=== PATIENT | female | born 1950 | race Caucasian/White ===

== ENCOUNTER 2017-07-28 17:04 | Inpatient (IN) | payer MEDICARE, OTHER ==
[2017-07-28 17:33] LABS: ADD MAN DIFF? NO
[2017-07-28] MEDS: ONDANSETRON 4 MG INJ IV (17:33)
[2017-07-28] MEDS: SOD CHLORIDE 0.9% 1,000 ML IV (17:33)
[2017-07-28 17:36] LABS: WHITE BLOOD COUNT 6.3 10^3/ul (4.8-10.8)
[2017-07-28 17:36] LABS: BASOPHILS % 0.3 % (0.0-2.0); EOSINOPHILS # 0.1 10^3/ul (0.0-0.5); EOSINOPHILS % 0.8 % (0.0-7.0); HEMATOCRIT 38.2 % (37.0-47.0); HEMOGLOBIN 12.4 g/dl (12.0-16.0); LYMPHOCYTES # 2.3 10^3/ul (0.8-2.9); LYMPHOCYTES % 35.7 % (15.0-51.0); MEAN CORPUSCULAR HEMOGLOBIN 29.8 pg (29.0-33.0); MEAN CORPUSCULAR HGB CONC 32.5 g/dl (32.0-37.0); MEAN CORPUSCULAR VOLUME 91.8 fl (82.0-101.0); MEAN PLATELET VOLUME 10.6 fl (7.4-10.4); MONOCYTE # 0.5 10^3/ul (0.3-0.9); MONOCYTES % 7.1 % (0.0-11.0); NEUTROPHIL # 3.5 10^3/ul (1.6-7.5); NEUTROPHILS % 55.9 % (39.0-77.0); PLATELET COUNT 292 10^3/UL (140-415); RED BLOOD COUNT 4.16 10^6/ul (4.20-5.40); RED CELL DISTRIBUTION WIDTH 13.7 % (11.5-14.5)
[2017-07-28] MEDS: ASPIRIN 81 MG TAB PO (17:51)
[2017-07-28] MEDS: LIDOCAINE/MYLANTA 40 ML BTL PO (17:52)
[2017-07-28 17:56] LABS: INR 0.88; PT RATIO 0.9
[2017-07-28 17:57] LABS: ALANINE AMINOTRANSFERASE 18 IU/L (13-69); ALBUMIN 4.4 g/dl (3.3-4.9); ALBUMIN/GLOBULIN RATIO 1.37; ALKALINE PHOSPHATASE 92 IU/L (42-121); ANION GAP 10 (8-16); ASPARTATE AMINO TRANSFERASE 14 IU/L (15-46); BILIRUBIN,INDIRECT 0.8 mg/dl (0-1.1); BILIRUBIN,TOTAL 0.8 mg/dl (0.2-1.3); BLOOD UREA NITROGEN 9 mg/dl (7-20); CALCIUM 9.3 mg/dl (8.4-10.2); CARBON DIOXIDE 24 mmol/L (21-31); CHLORIDE 110 mmol/L (97-110); CREATININE 0.73 mg/dl (0.44-1.00); GLUCOSE 86 mg/dl (70-220); LIPASE 57 U/L (23-300); POTASSIUM 4.1 mmol/L (3.5-5.1); SODIUM 140 mmol/L (135-144); TOTAL PROTEIN 7.6 g/dl (6.1-8.1)
[2017-07-28 18:09] LABS: B-TYPE NATRIURETIC PEPTIDE 86 PG/ML (0-125)
[2017-07-28 18:20] LABS: TROPONIN-I < 0.012 ng/ml (0.000-0.120)
[2017-07-28] MEDS ORDERED: FENTAnyl 50 MCG/ML VIAL IV (19:00)
[2017-07-28] MEDS: METOCLOPRAMIDE 10 MG INJ IV (19:05)
[2017-07-28] MEDS ORDERED: ACETAMINOPHEN 325 MG TAB PO (19:30)
[2017-07-28] MEDS ORDERED: ONDANSETRON 4 MG INJ IV (19:30)
[2017-07-28] MEDS: morphine 4 MG/ML VIAL IV (20:00)
[2017-07-28] MEDS ORDERED: PANTOPRAZOLE 40 MG INJ IV (20:00)
[2017-07-28] MEDS: PANTOPRAZOLE IV 80 MG in SOD CHLORIDE 0.9% 100 ML IV (20:14)
[2017-07-28] MEDS: PANTOPRAZOLE 40 MG INJ IV (21:36)
[2017-07-28] MEDS ORDERED: METOCLOPRAMIDE 10 MG TAB PO (22:30)
[2017-07-28] MEDS ORDERED: morphine 2 MG INJ IV (22:30)
[2017-07-28] MEDS ORDERED: DIPHENHYDRAMINE 25 MG CAP PO (22:30)
[2017-07-28] MEDS: DEXTROSE 5%-0.9% NACL 1,000 ML IV (22:59)
[2017-07-28 23:46] LABS: CREATINE KINASE 21 IU/L (23-200)
[2017-07-28] MEDS: morphine 2 MG INJ IV (23:51)
[2017-07-28 23:59] LABS: CK-MB < 0.22 ng/ml (0.0-2.4); TROPONIN-I < 0.012 ng/ml (0.000-0.120)
[2017-07-29] MEDS: morphine 2 MG INJ IV ×5 (03:20→20:37)
[2017-07-29] MEDS: PANTOPRAZOLE (EC) 40 MG TAB PO (06:00)
[2017-07-29] MEDS: DEXTROSE 5%-0.9% NACL 1,000 ML IV (06:47)
[2017-07-29 07:13] LABS: ADD MAN DIFF? NO
[2017-07-29 07:17] LABS: BASOPHILS % 0.2 % (0.0-2.0); EOSINOPHILS # 0.1 10^3/ul (0.0-0.5); EOSINOPHILS % 1.7 % (0.0-7.0); HEMATOCRIT 32.1 % (37.0-47.0); LYMPHOCYTES % 40.3 % (15.0-51.0); MEAN CORPUSCULAR HEMOGLOBIN 29.3 pg (29.0-33.0); MEAN CORPUSCULAR HGB CONC 31.2 g/dl (32.0-37.0); MEAN CORPUSCULAR VOLUME 94.1 fl (82.0-101.0); MEAN PLATELET VOLUME 10.6 fl (7.4-10.4); MONOCYTE # 0.4 10^3/ul (0.3-0.9); MONOCYTES % 9.1 % (0.0-11.0); NEUTROPHIL # 2.3 10^3/ul (1.6-7.5); NEUTROPHILS % 48.3 % (39.0-77.0); PLATELET COUNT 217 10^3/UL (140-415); RED BLOOD COUNT 3.41 10^6/ul (4.20-5.40); RED CELL DISTRIBUTION WIDTH 13.6 % (11.5-14.5)
[2017-07-29 07:17] LABS: WHITE BLOOD COUNT 4.8 10^3/ul (4.8-10.8)
[2017-07-29 07:35] LABS: LIPASE 54 U/L (23-300)
[2017-07-29 07:37] LABS: ALANINE AMINOTRANSFERASE 20 IU/L (13-69); ALBUMIN 3.1 g/dl (3.3-4.9); ALBUMIN/GLOBULIN RATIO 1.14; ALKALINE PHOSPHATASE 68 IU/L (42-121); AMYLASE 57 U/L (11-123); ANION GAP 8 (8-16); ASPARTATE AMINO TRANSFERASE 11 IU/L (15-46); BILIRUBIN,INDIRECT 0.7 mg/dl (0-1.1); BILIRUBIN,TOTAL 0.7 mg/dl (0.2-1.3); BLOOD UREA NITROGEN 7 mg/dl (7-20); CALCIUM 7.3 mg/dl (8.4-10.2); CARBON DIOXIDE 23 mmol/L (21-31); CHLORIDE 112 mmol/L (97-110); CREATININE 0.67 mg/dl (0.44-1.00); GLUCOSE 215 mg/dl (70-220); MAGNESIUM 1.9 mg/dl (1.7-2.5); PHOSPHORUS 2.2 mg/dl (2.5-4.9); POTASSIUM 3.7 mmol/L (3.5-5.1); SODIUM 139 mmol/L (135-144); TOTAL PROTEIN 5.8 g/dl (6.1-8.1)
[2017-07-29 07:40] LABS: DIGOXIN < 0.4 ng/ml (1.0-2.0)
[2017-07-29 07:41] LABS: CREATINE KINASE < 20 IU/L (23-200)
[2017-07-29 07:42] LABS: IRON 43 ug/dl (35-150)
[2017-07-29] MEDS: ONDANSETRON 4 MG INJ IV ×2 (07:45→20:37)
[2017-07-29 07:49] LABS: CK-MB < 0.22 ng/ml (0.0-2.4); TROPONIN-I < 0.012 ng/ml (0.000-0.120)
[2017-07-29 07:51] LABS: % IRON SATURATION 18 % SAT (22-52); TOTAL IRON BINDING CAPACITY 239 ug/dl (241-421)
[2017-07-29] MEDS: ARIPIPRAZOLE 2 MG TAB PO (08:46)
[2017-07-29] MEDS: morphine LIQ (10 MG/5 ML) CUP PO ×2 (15:57→16:04)
[2017-07-29] MEDS: SOD FERRIC GLUC COMPLX 125 MG in SOD CHLORIDE 0.9% 100 ML IVPB (16:17)
[2017-07-30] MEDS: DEXTROSE 5%-0.9% NACL 1,000 ML IV ×3 (00:17→17:11)
[2017-07-30] MEDS: ONDANSETRON 4 MG INJ IV ×3 (04:02→18:10)
[2017-07-30] MEDS: PANTOPRAZOLE (EC) 40 MG TAB PO (05:20)
[2017-07-30] MEDS: ARIPIPRAZOLE 2 MG TAB PO (09:00)
[2017-07-30] MEDS: morphine 2 MG INJ IV ×4 (09:51→20:43)
[2017-07-30] MEDS: SOD FERRIC GLUC COMPLX 125 MG in SOD CHLORIDE 0.9% 100 ML IVPB (17:06)
[2017-07-31] MEDS: morphine 2 MG INJ IV ×6 (01:10→21:15)
[2017-07-31] MEDS: ONDANSETRON 4 MG INJ IV ×3 (05:15→16:21)
[2017-07-31] MEDS: PANTOPRAZOLE (EC) 40 MG TAB PO (05:47)
[2017-07-31 07:36] LABS: ADD MAN DIFF? NO
[2017-07-31 07:46] LABS: BASOPHILS % 0.2 % (0.0-2.0); EOSINOPHILS # 0.1 10^3/ul (0.0-0.5); EOSINOPHILS % 1.6 % (0.0-7.0); HEMATOCRIT 32.6 % (37.0-47.0); HEMOGLOBIN 10.9 g/dl (12.0-16.0); LYMPHOCYTES # 1.7 10^3/ul (0.8-2.9); LYMPHOCYTES % 34.3 % (15.0-51.0); MEAN CORPUSCULAR HEMOGLOBIN 30.1 pg (29.0-33.0); MEAN CORPUSCULAR HGB CONC 33.4 g/dl (32.0-37.0); MEAN CORPUSCULAR VOLUME 90.1 fl (82.0-101.0); MEAN PLATELET VOLUME 10.7 fl (7.4-10.4); MONOCYTE # 0.5 10^3/ul (0.3-0.9); MONOCYTES % 10.7 % (0.0-11.0); NEUTROPHIL # 2.6 10^3/ul (1.6-7.5); NEUTROPHILS % 52.8 % (39.0-77.0); PLATELET COUNT 249 10^3/UL (140-415); RED BLOOD COUNT 3.62 10^6/ul (4.20-5.40); RED CELL DISTRIBUTION WIDTH 13.6 % (11.5-14.5)
[2017-07-31] MEDS: ASPIRIN 81 MG TAB PO (08:01)
[2017-07-31] MEDS: ARIPIPRAZOLE 2 MG TAB PO (08:01)
[2017-07-31 08:08] LABS: ALANINE AMINOTRANSFERASE 21 IU/L (13-69); ALBUMIN 3.6 g/dl (3.3-4.9); ALBUMIN/GLOBULIN RATIO 1.24; ALKALINE PHOSPHATASE 75 IU/L (42-121); AMYLASE 68 U/L (11-123); ANION GAP 6 (8-16); ASPARTATE AMINO TRANSFERASE 14 IU/L (15-46); BILIRUBIN,INDIRECT 0.5 mg/dl (0-1.1); BILIRUBIN,TOTAL 0.5 mg/dl (0.2-1.3); BLOOD UREA NITROGEN 2 mg/dl (7-20); CALCIUM 7.8 mg/dl (8.4-10.2); CARBON DIOXIDE 22 mmol/L (21-31); CHLORIDE 115 mmol/L (97-110); CREATININE 0.57 mg/dl (0.44-1.00); GLUCOSE 106 mg/dl (70-220); LIPASE 68 U/L (23-300); POTASSIUM 3.4 mmol/L (3.5-5.1); SODIUM 140 mmol/L (135-144); TOTAL PROTEIN 6.5 g/dl (6.1-8.1)
[2017-07-31 08:35] LABS: CARCINOEMBRYONIC ANTIGEN 1.8 ng/ml (0.0-5.0)
[2017-07-31] MEDS: DEXTROSE 5%-0.9% NACL 1,000 ML IV ×2 (11:20→16:21)
[2017-07-31] MEDS: SOD FERRIC GLUC COMPLX 125 MG in SOD CHLORIDE 0.9% 100 ML IVPB (17:00)
[2017-07-31] MEDS: PROPOFOL 40 ML (18:49)
[2017-07-31] MEDS: LIDOCAINE 2% (SDV) 5 ML INJ (18:49)
[2017-07-31] MEDS: METOCLOPRAMIDE 10 MG INJ IV (22:27)
[2017-08-01] MEDS: morphine 2 MG INJ IV ×6 (01:30→21:59)
[2017-08-01] MEDS: METOCLOPRAMIDE 10 MG INJ IV ×2 (03:47→08:32)
[2017-08-01] MEDS: PANTOPRAZOLE (EC) 40 MG TAB PO ×2 (05:44→20:18)
[2017-08-01] MEDS: ASPIRIN 81 MG TAB PO (08:32)
[2017-08-01] MEDS: ARIPIPRAZOLE 2 MG TAB PO (08:32)
[2017-08-01] MEDS: DEXTROSE 5%-0.9% NACL 1,000 ML IV (08:40)
[2017-08-01] MEDS: SUCRALFATE 1 GM TAB PO ×4 (13:29→20:17)
[2017-08-01] MEDS: ONDANSETRON 4 MG INJ IV (15:30)
[2017-08-01] MEDS ORDERED: POTASSIUM CHLORIDE (SR) 20 MEQ TAB PO (18:52)
[2017-08-01] MEDS: ERYTHROMYCIN BASE (EC) 250 MG TAB PO (20:18)
[2017-08-01] MEDS: POTASSIUM CHLORIDE 100 ML IVPB (21:53)
[2017-08-02] MEDS: DEXTROSE 5%-0.9% NACL 1,000 ML IV ×2 (02:54→20:30)
[2017-08-02] MEDS: morphine 2 MG INJ IV ×5 (03:31→23:51)
[2017-08-02] MEDS: ONDANSETRON 4 MG INJ IV ×3 (03:34→20:35)
[2017-08-02] MEDS: ERYTHROMYCIN BASE (EC) 250 MG TAB PO ×2 (08:24→20:30)
[2017-08-02] MEDS: ASPIRIN 81 MG TAB PO (08:24)
[2017-08-02] MEDS: ARIPIPRAZOLE 2 MG TAB PO (08:24)
[2017-08-02] MEDS: SUCRALFATE 1 GM TAB PO ×4 (08:24→20:30)
[2017-08-02] MEDS: PANTOPRAZOLE (EC) 40 MG TAB PO ×2 (08:24→20:30)
[2017-08-02] MEDS: METOCLOPRAMIDE 10 MG INJ IV (15:47)
[2017-08-02] MEDS: POTASSIUM PHOSPHATE 20 MEQ in SOD CHLORIDE 0.9% 250 ML IVPB (16:00)
[2017-08-03] MEDS: morphine 2 MG INJ IV ×6 (03:49→21:49)
[2017-08-03 07:04] LABS: ADD MAN DIFF? NO
[2017-08-03 07:11] LABS: BASOPHILS % 0.2 % (0.0-2.0); EOSINOPHILS # 0.1 10^3/ul (0.0-0.5); EOSINOPHILS % 2.2 % (0.0-7.0); HEMATOCRIT 31.6 % (37.0-47.0); HEMOGLOBIN 10.1 g/dl (12.0-16.0); LYMPHOCYTES # 1.6 10^3/ul (0.8-2.9); LYMPHOCYTES % 31.7 % (15.0-51.0); MEAN CORPUSCULAR HEMOGLOBIN 29.2 pg (29.0-33.0); MEAN CORPUSCULAR VOLUME 91.3 fl (82.0-101.0); MEAN PLATELET VOLUME 10.9 fl (7.4-10.4); MONOCYTE # 0.5 10^3/ul (0.3-0.9); NEUTROPHIL # 2.8 10^3/ul (1.6-7.5); NEUTROPHILS % 55.7 % (39.0-77.0); PLATELET COUNT 233 10^3/UL (140-415); RED BLOOD COUNT 3.46 10^6/ul (4.20-5.40); RED CELL DISTRIBUTION WIDTH 13.6 % (11.5-14.5)
[2017-08-03 07:36] LABS: ALANINE AMINOTRANSFERASE 23 IU/L (13-69); ALBUMIN 3.3 g/dl (3.3-4.9); ALBUMIN/GLOBULIN RATIO 1.32; ALKALINE PHOSPHATASE 61 IU/L (42-121); AMYLASE 61 U/L (11-123); ANION GAP 12 (8-16); ASPARTATE AMINO TRANSFERASE 13 IU/L (15-46); BILIRUBIN,INDIRECT 0.5 mg/dl (0-1.1); BILIRUBIN,TOTAL 0.5 mg/dl (0.2-1.3); CALCIUM 7.1 mg/dl (8.4-10.2); CARBON DIOXIDE 25 mmol/L (21-31); CHLORIDE 111 mmol/L (97-110); GLUCOSE 98 mg/dl (70-220); LIPASE 59 U/L (23-300); POTASSIUM 3.6 mmol/L (3.5-5.1); SODIUM 144 mmol/L (135-144); TOTAL PROTEIN 5.8 g/dl (6.1-8.1)
[2017-08-03 07:38] LABS: PHOSPHORUS 1.4 mg/dl (2.5-4.9)
[2017-08-03 07:38] LABS: MAGNESIUM 1.9 mg/dl (1.7-2.5)
[2017-08-03] MEDS: ONDANSETRON 4 MG INJ IV ×2 (07:44→18:40)
[2017-08-03 07:46] LABS: BLOOD UREA NITROGEN < 2 mg/dl (7-20)
[2017-08-03 08:08] LABS: ERYTHROCYTE SEDIMENTATION RATE 17 mm/Hr (0-30)
[2017-08-03] MEDS: ERYTHROMYCIN BASE (EC) 250 MG TAB PO ×3 (08:55→21:00)
[2017-08-03] MEDS: ARIPIPRAZOLE 2 MG TAB PO (08:56)
[2017-08-03] MEDS: SUCRALFATE 1 GM TAB PO ×5 (08:56→21:00)
[2017-08-03] MEDS: ASPIRIN 81 MG TAB PO (08:56)
[2017-08-03] MEDS: PANTOPRAZOLE (EC) 40 MG TAB PO ×3 (08:56→21:00)
[2017-08-03] MEDS: DEXTROSE 5%-0.9% NACL 1,000 ML IV (12:28)
[2017-08-03] MEDS: METOCLOPRAMIDE 10 MG INJ IV ×2 (13:22→21:21)
[2017-08-03] MEDS: POTASSIUM PHOSPHATE 20 MEQ in SOD CHLORIDE 0.9% 250 ML IVPB ×2 (14:30→15:37)
[2017-08-03] MEDS: SOD FERRIC GLUC COMPLX 125 MG in SOD CHLORIDE 0.9% 100 ML IVPB (17:00)
[2017-08-04] MEDS: morphine 2 MG INJ IV ×6 (01:03→20:49)
[2017-08-04] MEDS: DEXTROSE 5%-0.9% NACL 1,000 ML IV ×2 (04:30→18:22)
[2017-08-04 07:53] LABS: ANION GAP 12 (8-16); CALCIUM 7.7 mg/dl (8.4-10.2); CARBON DIOXIDE 26 mmol/L (21-31); CHLORIDE 110 mmol/L (97-110); CREATININE 0.56 mg/dl (0.44-1.00); GLUCOSE 89 mg/dl (70-220); PHOSPHORUS 1.7 mg/dl (2.5-4.9); POTASSIUM 3.7 mmol/L (3.5-5.1); SODIUM 144 mmol/L (135-144)
[2017-08-04 07:56] LABS: BLOOD UREA NITROGEN < 2 mg/dl (7-20)
[2017-08-04] MEDS: ASPIRIN 81 MG TAB PO (09:00)
[2017-08-04] MEDS: ARIPIPRAZOLE 2 MG TAB PO (09:00)
[2017-08-04] MEDS: POTASSIUM PHOSPHATE 20 MEQ in SOD CHLORIDE 0.9% 250 ML IV (09:25)
[2017-08-04] MEDS: PANTOPRAZOLE (EC) 40 MG TAB PO ×2 (09:27→20:49)
[2017-08-04] MEDS: ERYTHROMYCIN BASE (EC) 250 MG TAB PO ×2 (09:27→20:52)
[2017-08-04] MEDS: SUCRALFATE 1 GM TAB PO ×4 (09:27→20:53)
[2017-08-04] MEDS: METOCLOPRAMIDE 10 MG INJ IV (09:44)
[2017-08-04] MEDS: LUBIPROSTONE 24 MCG CAP PO ×2 (11:06→20:48)
[2017-08-04] MEDS ORDERED: POTASSIUM PHOSPHATE 30 MM in SOD CHLORIDE 0.9% 250 ML IVPB (16:00)
[2017-08-04] MEDS: SOD FERRIC GLUC COMPLX 125 MG in SOD CHLORIDE 0.9% 100 ML IVPB (16:25)
[2017-08-04] MEDS: POTASSIUM PHOSPHATE 10 MM in SOD CHLORIDE 0.9% 250 ML IVPB (18:21)
[2017-08-04] MEDS ORDERED: PROCHLORPERAZINE 25 MG SUPP PR (20:00)
[2017-08-05] MEDS: morphine 2 MG INJ IV ×4 (00:07→12:41)
[2017-08-05] MEDS: METOCLOPRAMIDE 10 MG INJ IV ×2 (00:11→12:40)
[2017-08-05] MEDS ORDERED: DEXTROSE 5%-0.45% NACL 1,000 ML IV (05:00)
[2017-08-05] MEDS: LUBIPROSTONE 24 MCG CAP PO (09:00)
[2017-08-05] MEDS: ARIPIPRAZOLE 2 MG TAB PO (09:00)
[2017-08-05] MEDS: ERYTHROMYCIN BASE (EC) 250 MG TAB PO (09:00)
[2017-08-05] MEDS: ASPIRIN 81 MG TAB PO (09:00)
[2017-08-05] MEDS: PANTOPRAZOLE (EC) 40 MG TAB PO (09:00)
[2017-08-05] MEDS: SUCRALFATE 1 GM TAB PO ×3 (09:00→17:00)
[2017-08-05] MEDS: ONDANSETRON 4 MG INJ IV (09:34)
[2017-08-05 12:46] LABS: ADD UMIC YES; UR ASCORBIC ACID NEGATIVE (NEGATIVE); UR BACTERIA FEW /HPF (NONE SEEN); UR BILIRUBIN (Dip) NEGATIVE (NEGATIVE); UR BLOOD (Dip) 1+ mg/dL (NEGATIVE); UR CLARITY CLOUDY (CLEAR); UR COLOR YELLOW (YELLOW); UR GLUCOSE (Dip) NEGATIVE (NEGATIVE); UR KETONES (Dip) NEGATIVE (NEGATIVE); UR LEUKOCYTE ESTERASE (Dip) 3+ Leu/ul (NEGATIVE); UR NITRITE (Dip) NEGATIVE (NEGATIVE); UR RBC 4 /HPF (0-5); UR TOTAL PROTEIN (Dip) NEGATIVE (NEGATIVE); UR UROBILINOGEN (Dip) 1+ mg/dL (NEGATIVE); UR WBC > 182 /HPF (0-5)
[2017-08-05] MEDS: DEXTROSE 5%-0.9% NACL 1,000 ML IV (13:50)
[2017-08-05] MEDS: POTASSIUM PHOSPHATE 30 MM in SOD CHLORIDE 0.9% 250 ML IVPB (13:59)
[2017-08-05] MEDS: SOD FERRIC GLUC COMPLX 125 MG in SOD CHLORIDE 0.9% 100 ML IVPB (17:00)
== END 2017-08-05 20:30 | disposition home or self-care (01) | DRG 392 ==
LOC: E/R 17:04 → MS4 20:15
PROC: 0DB68ZX Excision of Stomach, Via Natural or Artificial Opening Endoscopic, Diagnostic (ICD-10-PCS; principal; 2017-07-31 16:36)
DX: K29.70 Gastritis, unspecified, without bleeding (principal); E46 Unspecified protein-calorie malnutrition; Z68.25 Body mass index [BMI] 25.0-25.9, adult; F32.9 Major depressive disorder, single episode, unspecified; F41.9 Anxiety disorder, unspecified; I11.0 Hypertensive heart disease with heart failure; I50.9 Heart failure, unspecified; I25.2 Old myocardial infarction; G20 Parkinson's disease; K20.8 Other esophagitis; K21.9 Gastro-esophageal reflux disease without esophagitis; R42 Dizziness and giddiness; R48.8 Other symbolic dysfunctions; H53.9 Unspecified visual disturbance; M81.0 Age-related osteoporosis without current pathological fracture; R47.1 Dysarthria and anarthria; G47.33 Obstructive sleep apnea (adult) (pediatric); R32 Unspecified urinary incontinence; E87.6 Hypokalemia; E83.42 Hypomagnesemia; D50.9 Iron deficiency anemia, unspecified; D63.8 Anemia in other chronic diseases classified elsewhere; F45.8 Other somatoform disorders; E88.09 Other disorders of plasma-protein metabolism, not elsewhere classified; K44.9 Diaphragmatic hernia without obstruction or gangrene; I25.10 Atherosclerotic heart disease of native coronary artery without angina pectoris; E83.39 Other disorders of phosphorus metabolism; Z86.73 Personal history of transient ischemic attack (TIA), and cerebral infarction without residual deficits; Z79.82 Long term (current) use of aspirin; Z87.11 Personal history of peptic ulcer disease; Z91.81 History of falling; Z90.710 Acquired absence of both cervix and uterus
CPT/HCPCS: 36415; 70450; 71045; 76700; 80048; 80053; 80162; 81001; 82150; 82378; 82550; 82553; 83540; 83690; 83735; 83880; 84100; 84443; 84484; 85025; 85610; 85651; 87086; 88305; 88312; 92610; 93005; 93306; 93880; 96374; 96375; 97161; 99285-25; G0378

== ENCOUNTER 2017-08-24 16:33 | Inpatient (IN) | payer MEDICARE, OTHER ==
[2017-08-24 17:13] LABS: ADD MAN DIFF? NO
[2017-08-24 17:16] LABS: WHITE BLOOD COUNT 8.3 10^3/ul (4.8-10.8)
[2017-08-24 17:16] LABS: BASOPHILS % 0.2 % (0.0-2.0); EOSINOPHILS # 0.1 10^3/ul (0.0-0.5); EOSINOPHILS % 1.2 % (0.0-7.0); HEMOGLOBIN 12.7 g/dl (12.0-16.0); LYMPHOCYTES # 1.9 10^3/ul (0.8-2.9); LYMPHOCYTES % 22.8 % (15.0-51.0); MEAN CORPUSCULAR HEMOGLOBIN 30.1 pg (29.0-33.0); MEAN CORPUSCULAR HGB CONC 33.4 g/dl (32.0-37.0); MEAN PLATELET VOLUME 10.3 fl (7.4-10.4); MONOCYTE # 0.8 10^3/ul (0.3-0.9); MONOCYTES % 9.7 % (0.0-11.0); NEUTROPHIL # 5.5 10^3/ul (1.6-7.5); NEUTROPHILS % 65.7 % (39.0-77.0); PLATELET COUNT 318 10^3/UL (140-415); RED BLOOD COUNT 4.22 10^6/ul (4.20-5.40); RED CELL DISTRIBUTION WIDTH 13.3 % (11.5-14.5)
[2017-08-24 17:22] LABS: URINE BLOOD (Dip) POC Negative (NEGATIVE); URINE GLUCOSE (Dip) POC Negative (NEGATIVE); URINE KETONES (Dip) POC 3+ (NEGATIVE); URINE LEUKOCYTE EST (Dip) POC Trace (NEGATIVE); URINE NITRITE (Dip) POC Positive (NEGATIVE); URINE TOTAL PROTEIN POC 2+ (NEGATIVE)
[2017-08-24 17:22] LABS: URINE PH (Dip) POC 5.5 (5.0-8.5)
[2017-08-24] MEDS: SOD CHLORIDE 0.9% 500 ML IV (18:06)
[2017-08-24] MEDS: PANTOPRAZOLE 40 MG INJ IV (18:07)
[2017-08-24] MEDS: ONDANSETRON 4 MG INJ IV (18:07)
[2017-08-24] MEDS: morphine 2 MG INJ IV ×2 (18:07→21:39)
[2017-08-24] MEDS: CEFTRIAXONE 1 GM/50 ML (PMX) 50 ML IVPB (18:41)
[2017-08-24 19:13] LABS: ALANINE AMINOTRANSFERASE 23 IU/L (13-69); ALBUMIN 4.3 g/dl (3.3-4.9); ALBUMIN/GLOBULIN RATIO 1.53; ALKALINE PHOSPHATASE 70 IU/L (42-121); ANION GAP 13 (8-16); ASPARTATE AMINO TRANSFERASE 20 IU/L (15-46); BILIRUBIN,INDIRECT 0.2 mg/dl (0-1.1); BILIRUBIN,TOTAL 0.2 mg/dl (0.2-1.3); BLOOD UREA NITROGEN 14 mg/dl (7-20); CALCIUM 9.4 mg/dl (8.4-10.2); CARBON DIOXIDE 24 mmol/L (21-31); CHLORIDE 108 mmol/L (97-110); CREATININE 0.89 mg/dl (0.44-1.00); GLUCOSE 106 mg/dl (70-220); LIPASE 70 U/L (23-300); POTASSIUM 3.9 mmol/L (3.5-5.1); SODIUM 141 mmol/L (135-144); TOTAL PROTEIN 7.1 g/dl (6.1-8.1)
[2017-08-24] MEDS: LIDOCAINE/MYLANTA 40 ML BTL PO (19:36)
[2017-08-24] MEDS ORDERED: ACETAMINOPHEN 650 MG SUPP PR (21:00)
[2017-08-24 21:03] LABS: IRON 36 ug/dl (35-150)
[2017-08-24 21:04] LABS: MAGNESIUM 2.4 mg/dl (1.7-2.5)
[2017-08-24] MEDS: DEXTROSE 5%-0.9% NACL 1,000 ML IV (21:05)
[2017-08-24 21:13] LABS: % IRON SATURATION 15 % SAT (22-52); TOTAL IRON BINDING CAPACITY 234 ug/dl (241-421)
[2017-08-24] MEDS ORDERED: morphine 2 MG INJ IV (21:30)
[2017-08-24] MEDS: LEVOFLOXACIN 500MG/D5W (PMX) 100 ML IVPB (21:39)
[2017-08-25] MEDS: morphine 2 MG INJ IV ×5 (01:38→22:11)
[2017-08-25] MEDS: METOCLOPRAMIDE 10 MG INJ IV ×4 (01:45→22:15)
[2017-08-25] MEDS: PANTOPRAZOLE 40 MG INJ IV ×2 (05:33→17:14)
[2017-08-25] MEDS: MULTIVITAMINS 10 ML, THIAMINE 100 MG, FOLIC ACID 1 MG in SOD CHLORIDE 0.9% 1,000 ML IVPB (09:41)
[2017-08-25] MEDS: DEXTROSE 5%-0.9% NACL 1,000 ML IV ×2 (13:40→17:14)
[2017-08-25] MEDS: SOD FERRIC GLUC COMPLX 125 MG in SOD CHLORIDE 0.9% 100 ML IVPB (16:16)
[2017-08-25] MEDS: LUBIPROSTONE 24 MCG CAP PO (20:52)
[2017-08-25] MEDS: LEVOFLOXACIN 500MG/D5W (PMX) 100 ML IVPB (20:52)
[2017-08-26] MEDS: morphine 2 MG INJ IV ×3 (03:42→20:41)
[2017-08-26] MEDS: PANTOPRAZOLE 40 MG INJ IV ×2 (06:14→17:48)
[2017-08-26] MEDS: LUBIPROSTONE 24 MCG CAP PO ×2 (09:08→21:00)
[2017-08-26] MEDS: ONDANSETRON 4 MG INJ IV ×2 (09:09→15:35)
[2017-08-26] MEDS: MULTIVITAMINS 10 ML, THIAMINE 100 MG, FOLIC ACID 1 MG in SOD CHLORIDE 0.9% 1,000 ML IVPB (09:10)
[2017-08-26 11:25] LABS: ADD MAN DIFF? NO
[2017-08-26 11:37] LABS: BASOPHILS % 0.3 % (0.0-2.0); EOSINOPHILS # 0.1 10^3/ul (0.0-0.5); EOSINOPHILS % 1.6 % (0.0-7.0); HEMOGLOBIN 11.2 g/dl (12.0-16.0); LYMPHOCYTES # 2.3 10^3/ul (0.8-2.9); LYMPHOCYTES % 32.6 % (15.0-51.0); MEAN CORPUSCULAR HEMOGLOBIN 28.7 pg (29.0-33.0); MEAN CORPUSCULAR HGB CONC 31.1 g/dl (32.0-37.0); MEAN CORPUSCULAR VOLUME 92.3 fl (82.0-101.0); MEAN PLATELET VOLUME 10.7 fl (7.4-10.4); MONOCYTE # 0.7 10^3/ul (0.3-0.9); MONOCYTES % 9.9 % (0.0-11.0); NEUTROPHIL # 3.8 10^3/ul (1.6-7.5); NEUTROPHILS % 54.9 % (39.0-77.0); PLATELET COUNT 283 10^3/UL (140-415); RED CELL DISTRIBUTION WIDTH 13.9 % (11.5-14.5)
[2017-08-26 11:46] LABS: ALANINE AMINOTRANSFERASE 27 IU/L (13-69); ALBUMIN 3.5 g/dl (3.3-4.9); ALBUMIN/GLOBULIN RATIO 1.29; ALKALINE PHOSPHATASE 51 IU/L (42-121); ANION GAP 11 (8-16); ASPARTATE AMINO TRANSFERASE 16 IU/L (15-46); BILIRUBIN,INDIRECT 0.3 mg/dl (0-1.1); BILIRUBIN,TOTAL 0.3 mg/dl (0.2-1.3); BLOOD UREA NITROGEN 3 mg/dl (7-20); CALCIUM 7.7 mg/dl (8.4-10.2); CARBON DIOXIDE 25 mmol/L (21-31); CHLORIDE 107 mmol/L (97-110); CREATININE 0.56 mg/dl (0.44-1.00); GLUCOSE 135 mg/dl (70-220); POTASSIUM 3.4 mmol/L (3.5-5.1); SODIUM 140 mmol/L (135-144); TOTAL PROTEIN 6.2 g/dl (6.1-8.1)
[2017-08-26] MEDS: morphine LIQ (10 MG/5 ML) CUP PO (16:14)
[2017-08-26] MEDS: SOD FERRIC GLUC COMPLX 125 MG in SOD CHLORIDE 0.9% 100 ML IVPB (17:47)
[2017-08-26] MEDS: DEXTROSE 5%-0.9% NACL 1,000 ML IV (17:48)
[2017-08-26] MEDS: METOCLOPRAMIDE 10 MG INJ IV (17:51)
[2017-08-26] MEDS ORDERED: METOCLOPRAMIDE 10 MG INJ IV (21:00)
[2017-08-26] MEDS: ARIPIPRAZOLE 2 MG TAB PO (21:29)
[2017-08-26] MEDS: LEVOFLOXACIN 500MG/D5W (PMX) 100 ML IVPB (21:32)
[2017-08-26] MEDS ORDERED: POTASSIUM CHLORIDE 10 MEQ in DEXTROSE 5%-0.9% NACL 1,000 ML IV (22:11)
[2017-08-26] MEDS: BISACODYL 10 MG SUPP PR (22:30)
[2017-08-27] MEDS: POTASSIUM CHLORIDE 10 MEQ in DEXTROSE 5%-0.9% NACL 1,000 ML IV ×2 (00:57→17:29)
[2017-08-27] MEDS: ERYTHROMYCIN ETHYL SUCC (80 MG/ML PO SYG) PO ×2 (06:00)
[2017-08-27] MEDS: morphine 2 MG INJ IV ×3 (06:03→21:59)
[2017-08-27] MEDS: PANTOPRAZOLE 40 MG INJ IV ×2 (06:03→18:35)
[2017-08-27] MEDS: ONDANSETRON 4 MG INJ IV ×2 (07:50→21:08)
[2017-08-27] MEDS: MULTIVITAMINS 10 ML, THIAMINE 100 MG, FOLIC ACID 1 MG in SOD CHLORIDE 0.9% 1,000 ML IVPB (08:20)
[2017-08-27] MEDS: ARIPIPRAZOLE 2 MG TAB PO (08:22)
[2017-08-27] MEDS: LUBIPROSTONE 24 MCG CAP PO ×2 (08:22→21:58)
[2017-08-27] MEDS: MEGESTROL (40 MG/ML) 10ML CUP PO ×3 (12:00→22:00)
[2017-08-27] MEDS: IBUPROFEN 400 MG TAB PO ×2 (12:31→21:00)
[2017-08-27] MEDS: METOCLOPRAMIDE 10 MG INJ IV ×3 (12:31→23:54)
[2017-08-27] MEDS: ERYTHROMYCIN BASE (EC) 250 MG TAB PO ×2 (13:40→22:07)
[2017-08-27] MEDS: SOD FERRIC GLUC COMPLX 125 MG in SOD CHLORIDE 0.9% 100 ML IVPB (18:35)
[2017-08-27] MEDS ORDERED: ERYTHROMYCIN ETHYL SUCC (80 MG/ML PO SYG) PO ×3 (23:00)
[2017-08-28] MEDS: morphine 2 MG INJ IV ×3 (02:05→10:57)
[2017-08-28] MEDS: METOCLOPRAMIDE 10 MG INJ IV ×2 (06:39→12:41)
[2017-08-28] MEDS: PANTOPRAZOLE 40 MG INJ IV (06:39)
[2017-08-28] MEDS: ERYTHROMYCIN BASE (EC) 250 MG TAB PO ×3 (06:40→14:19)
[2017-08-28] MEDS: MULTIVITAMINS 10 ML, THIAMINE 100 MG, FOLIC ACID 1 MG in SOD CHLORIDE 0.9% 1,000 ML IVPB (08:33)
[2017-08-28] MEDS: LUBIPROSTONE 24 MCG CAP PO (08:34)
[2017-08-28] MEDS: IBUPROFEN 400 MG TAB PO (08:34)
[2017-08-28] MEDS: ARIPIPRAZOLE 2 MG TAB PO (08:40)
[2017-08-28] MEDS: MEGESTROL (40 MG/ML) 10ML CUP PO (08:41)
[2017-08-28] MEDS: VENLAFAXINE (XR) 37.5 MG CAP PO (09:30)
[2017-08-28] MEDS ORDERED: ONDANSETRON 4 MG TAB PO (09:30)
[2017-08-28] MEDS: SERTRALINE 100 MG TAB PO (09:30)
[2017-08-28] MEDS ORDERED: METOCLOPRAMIDE 10 MG TAB PO (09:30)
[2017-08-28] MEDS ORDERED: ARIPIPRAZOLE 2 MG TAB PO (09:30)
[2017-08-28] MEDS: LISINOPRIL 20 MG TAB PO (09:30)
[2017-08-28] MEDS: POTASSIUM CHLORIDE 10 MEQ in DEXTROSE 5%-0.9% NACL 1,000 ML IV (10:14)
[2017-08-28] MEDS: ONDANSETRON 4 MG INJ IV (10:57)
[2017-08-28] MEDS ORDERED: LUBIPROSTONE 8 MCG CAPSULE PO (21:00)
== END 2017-08-28 15:50 | disposition home or self-care (01) | DRG 392 ==
LOC: E/R 16:33 → MS2 19:20
PROVIDERS: Family Medicine
DX: K30 Functional dyspepsia (principal); E46 Unspecified protein-calorie malnutrition; F33.2 Major depressive disorder, recurrent severe without psychotic features; I11.0 Hypertensive heart disease with heart failure; I50.9 Heart failure, unspecified; R13.10 Dysphagia, unspecified; R11.2 Nausea with vomiting, unspecified; K29.70 Gastritis, unspecified, without bleeding; K20.8 Other esophagitis; K59.00 Constipation, unspecified; Z68.26 Body mass index [BMI] 26.0-26.9, adult; K21.9 Gastro-esophageal reflux disease without esophagitis; R47.1 Dysarthria and anarthria; R48.8 Other symbolic dysfunctions; G25.0 Essential tremor; R42 Dizziness and giddiness; H54.7 Unspecified visual loss; M81.0 Age-related osteoporosis without current pathological fracture; G47.33 Obstructive sleep apnea (adult) (pediatric); G89.4 Chronic pain syndrome; R32 Unspecified urinary incontinence; F41.9 Anxiety disorder, unspecified; F43.20 Adjustment disorder, unspecified; D64.9 Anemia, unspecified; I25.10 Atherosclerotic heart disease of native coronary artery without angina pectoris; E78.00 Pure hypercholesterolemia, unspecified; E03.9 Hypothyroidism, unspecified; K44.9 Diaphragmatic hernia without obstruction or gangrene; E86.0 Dehydration; Z96.649 Presence of unspecified artificial hip joint; Z87.11 Personal history of peptic ulcer disease; Z90.49 Acquired absence of other specified parts of digestive tract; Z86.73 Personal history of transient ischemic attack (TIA), and cerebral infarction without residual deficits
CPT/HCPCS: 36415; 74181; 80053; 81003; 83540; 83690; 83735; 85025; 93005; 96374; 96375; 97161; 99285-25

== ENCOUNTER 2017-09-04 19:00 | Inpatient (IN) | payer MEDICARE, OTHER ==
[2017-09-04] MEDS: ONDANSETRON 4 MG INJ IV (20:14)
[2017-09-04] MEDS: PANTOPRAZOLE 40 MG INJ IV (20:15)
[2017-09-04] MEDS: morphine 4 MG/ML VIAL IV ×2 (20:15→21:24)
[2017-09-04 20:22] LABS: ADD MAN DIFF? NO
[2017-09-04 20:26] LABS: WHITE BLOOD COUNT 7.9 10^3/ul (4.8-10.8)
[2017-09-04 20:26] LABS: BASOPHILS % 0.3 % (0.0-2.0); EOSINOPHILS # 0.1 10^3/ul (0.0-0.5); EOSINOPHILS % 1.3 % (0.0-7.0); HEMATOCRIT 36.2 % (37.0-47.0); HEMOGLOBIN 11.6 g/dl (12.0-16.0); LYMPHOCYTES # 2.5 10^3/ul (0.8-2.9); LYMPHOCYTES % 31.5 % (15.0-51.0); MEAN CORPUSCULAR HEMOGLOBIN 29.4 pg (29.0-33.0); MEAN CORPUSCULAR VOLUME 91.9 fl (82.0-101.0); MEAN PLATELET VOLUME 10.3 fl (7.4-10.4); MONOCYTE # 0.7 10^3/ul (0.3-0.9); MONOCYTES % 8.6 % (0.0-11.0); NEUTROPHIL # 4.6 10^3/ul (1.6-7.5); NEUTROPHILS % 57.9 % (39.0-77.0); PLATELET COUNT 266 10^3/UL (140-415); RED BLOOD COUNT 3.94 10^6/ul (4.20-5.40)
[2017-09-04 20:41] LABS: PARTIAL THROMBOPLASTIN TIME 24.3 Sec (25.0-35.0); PROTIME 12.2 Sec (11.9-14.9)
[2017-09-04 20:47] LABS: ALANINE AMINOTRANSFERASE 20 IU/L (13-69); ALBUMIN/GLOBULIN RATIO 1.42; ALKALINE PHOSPHATASE 59 IU/L (42-121); ANION GAP 11 (8-16); ASPARTATE AMINO TRANSFERASE 21 IU/L (15-46); BILIRUBIN,INDIRECT 0.7 mg/dl (0-1.1); BILIRUBIN,TOTAL 0.7 mg/dl (0.2-1.3); BLOOD UREA NITROGEN 10 mg/dl (7-20); CALCIUM 8.7 mg/dl (8.4-10.2); CARBON DIOXIDE 26 mmol/L (21-31); CHLORIDE 104 mmol/L (97-110); CREATININE 0.61 mg/dl (0.44-1.00); GLUCOSE 113 mg/dl (70-220); POTASSIUM 3.3 mmol/L (3.5-5.1); SODIUM 138 mmol/L (135-144); TOTAL PROTEIN 6.8 g/dl (6.1-8.1)
[2017-09-04] MEDS: SOD CHLORIDE 0.9% 1,000 ML IV (20:53)
[2017-09-04 21:14] LABS: TROPONIN-I < 0.010 ng/ml (0.000-0.120)
[2017-09-04] MEDS: POTASSIUM CHLORIDE 100 ML IVPB (21:24)
[2017-09-04] MEDS ORDERED: ONDANSETRON 4 MG INJ IV (22:30)
[2017-09-04] MEDS ORDERED: ACETAMINOPHEN 325 MG TAB PO (22:30)
[2017-09-05] MEDS ORDERED: ALBUTEROL/IPRATROPIUM (NEB) 3 ML AMP HHN (04:00)
[2017-09-05] MEDS ORDERED: NACL 0.9% 3 ML SYG IV (04:00)
[2017-09-05] MEDS: ONDANSETRON 4 MG INJ IV ×2 (04:18→12:42)
[2017-09-05] MEDS: DEXTROSE 5%-0.45% NACL 1,000 ML IV ×2 (04:18→14:41)
[2017-09-05] MEDS: morphine 2 MG INJ IV ×3 (04:25→20:31)
[2017-09-05 05:13] LABS: ADD MAN DIFF? NO
[2017-09-05 05:15] LABS: BASOPHILS % 0.2 % (0.0-2.0); EOSINOPHILS # 0.1 10^3/ul (0.0-0.5); EOSINOPHILS % 1.5 % (0.0-7.0); HEMATOCRIT 33.1 % (37.0-47.0); HEMOGLOBIN 10.5 g/dl (12.0-16.0); LYMPHOCYTES % 34.1 % (15.0-51.0); MEAN CORPUSCULAR HEMOGLOBIN 29.8 pg (29.0-33.0); MEAN CORPUSCULAR HGB CONC 31.7 g/dl (32.0-37.0); MEAN PLATELET VOLUME 10.2 fl (7.4-10.4); MONOCYTE # 0.6 10^3/ul (0.3-0.9); MONOCYTES % 10.3 % (0.0-11.0); NEUTROPHIL # 3.2 10^3/ul (1.6-7.5); NEUTROPHILS % 53.6 % (39.0-77.0); PLATELET COUNT 246 10^3/UL (140-415); RED BLOOD COUNT 3.52 10^6/ul (4.20-5.40); RED CELL DISTRIBUTION WIDTH 14.4 % (11.5-14.5)
[2017-09-05 05:43] LABS: ALANINE AMINOTRANSFERASE 81 IU/L (13-69); ALBUMIN 3.5 g/dl (3.3-4.9); ALBUMIN/GLOBULIN RATIO 1.45; ALKALINE PHOSPHATASE 85 IU/L (42-121); ANION GAP 8 (8-16); ASPARTATE AMINO TRANSFERASE 112 IU/L (15-46); BILIRUBIN,INDIRECT 0.6 mg/dl (0-1.1); BILIRUBIN,TOTAL 0.6 mg/dl (0.2-1.3); BLOOD UREA NITROGEN 8 mg/dl (7-20); CALCIUM 7.6 mg/dl (8.4-10.2); CARBON DIOXIDE 27 mmol/L (21-31); CHLORIDE 107 mmol/L (97-110); GLUCOSE 107 mg/dl (70-220); PHOSPHORUS 1.8 mg/dl (2.5-4.9); POTASSIUM 3.8 mmol/L (3.5-5.1); SODIUM 138 mmol/L (135-144); TOTAL PROTEIN 5.9 g/dl (6.1-8.1)
[2017-09-05] MEDS: VENLAFAXINE (XR) 37.5 MG CAP PO (09:00)
[2017-09-05] MEDS: ERYTHROMYCIN ETHYL SUCC (80 MG/ML PO SYG) PO ×4 (09:00→21:00)
[2017-09-05] MEDS: LISINOPRIL 20 MG TAB PO (09:00)
[2017-09-05] MEDS ORDERED: ERYTHROMYCIN BASE (EC) 250 MG TAB PO (09:00)
[2017-09-05] MEDS: LUBIPROSTONE 8 MCG CAPSULE PO ×2 (09:00→20:32)
[2017-09-05] MEDS: SERTRALINE 100 MG TAB PO (09:00)
[2017-09-05] MEDS: ARIPIPRAZOLE 2 MG TAB PO (09:00)
[2017-09-05] MEDS: FAMOTIDINE 20 MG INJ IV ×2 (09:24→20:31)
[2017-09-05] MEDS: METOCLOPRAMIDE 10 MG INJ IV (19:02)
[2017-09-05] MEDS ORDERED: BISACODYL (EC) 5 MG TAB PO (20:00)
[2017-09-05] MEDS ORDERED: MINERAL OIL 133 ML ENEMA PR (20:00)
[2017-09-05] MEDS: LACTULOSE 30ML CUP PO (20:31)
[2017-09-05 21:12] LABS: FOLATE 11.9 ng/ml (2.8-20.0)
[2017-09-05] MEDS: POTASSIUM PHOSPHATE 15 MM in SOD CHLORIDE 0.9% 250 ML IVPB (21:58)
[2017-09-06] MEDS: morphine 2 MG INJ IV ×4 (02:10→18:40)
[2017-09-06] MEDS: METOCLOPRAMIDE 10 MG INJ IV ×3 (02:10→20:48)
[2017-09-06] MEDS: DEXTROSE 5%-0.45% NACL 1,000 ML IV ×4 (02:20→22:05)
[2017-09-06 07:18] LABS: ADD MAN DIFF? NO
[2017-09-06 07:23] LABS: BASOPHILS % 0.2 % (0.0-2.0); EOSINOPHILS # 0.1 10^3/ul (0.0-0.5); EOSINOPHILS % 1.9 % (0.0-7.0); HEMATOCRIT 32.1 % (37.0-47.0); HEMOGLOBIN 10.3 g/dl (12.0-16.0); LYMPHOCYTES # 2.9 10^3/ul (0.8-2.9); LYMPHOCYTES % 48.7 % (15.0-51.0); MEAN CORPUSCULAR HEMOGLOBIN 29.9 pg (29.0-33.0); MEAN CORPUSCULAR HGB CONC 32.1 g/dl (32.0-37.0); MEAN PLATELET VOLUME 10.3 fl (7.4-10.4); MONOCYTE # 0.5 10^3/ul (0.3-0.9); MONOCYTES % 9.2 % (0.0-11.0); NEUTROPHIL # 2.3 10^3/ul (1.6-7.5); NEUTROPHILS % 39.7 % (39.0-77.0); PLATELET COUNT 259 10^3/UL (140-415); RED BLOOD COUNT 3.45 10^6/ul (4.20-5.40); RED CELL DISTRIBUTION WIDTH 14.6 % (11.5-14.5)
[2017-09-06 07:23] LABS: WHITE BLOOD COUNT 5.9 10^3/ul (4.8-10.8)
[2017-09-06 07:45] LABS: HEMOGLOBIN A1C 5.2 % (0-5.9)
[2017-09-06 07:46] LABS: INR 0.92; PROTIME 12.4 Sec (11.9-14.9)
[2017-09-06 08:12] LABS: ANION GAP 8 (8-16); BLOOD UREA NITROGEN 4 mg/dl (7-20); CALCIUM 7.4 mg/dl (8.4-10.2); CARBON DIOXIDE 26 mmol/L (21-31); CHLORIDE 110 mmol/L (97-110); CREATININE 0.59 mg/dl (0.44-1.00); GLUCOSE 101 mg/dl (70-220); MAGNESIUM 2.1 mg/dl (1.7-2.5); PHOSPHORUS 1.9 mg/dl (2.5-4.9); POTASSIUM 3.2 mmol/L (3.5-5.1); SODIUM 141 mmol/L (135-144)
[2017-09-06] MEDS: ONDANSETRON 4 MG INJ IV ×2 (08:48→18:40)
[2017-09-06] MEDS: VENLAFAXINE (XR) 37.5 MG CAP PO ×3 (08:49→14:30)
[2017-09-06] MEDS: LUBIPROSTONE 8 MCG CAPSULE PO ×3 (08:49→22:05)
[2017-09-06] MEDS: FAMOTIDINE 20 MG INJ IV ×2 (08:49→22:05)
[2017-09-06] MEDS: ERYTHROMYCIN ETHYL SUCC (80 MG/ML PO SYG) PO ×4 (09:00→21:00)
[2017-09-06] MEDS: BISACODYL 10 MG SUPP PR (09:01)
[2017-09-06] MEDS: POTASSIUM CHLORIDE 100 ML IVPB ×2 (16:28→18:36)
[2017-09-06] MEDS: BARIUM SULF 2% 450 ML BTL (BERRY SMOOTHIE) PO (20:54)
[2017-09-06] MEDS ORDERED: MEGESTROL 40 MG TAB PO (21:00)
[2017-09-06] MEDS: MEGESTROL (40 MG/ML) 10ML CUP PO (21:00)
[2017-09-07] MEDS: morphine 2 MG INJ IV ×4 (03:33→21:22)
[2017-09-07 05:37] LABS: ADD MAN DIFF? NO
[2017-09-07 05:42] LABS: BASOPHILS % 0.2 % (0.0-2.0); EOSINOPHILS # 0.1 10^3/ul (0.0-0.5); EOSINOPHILS % 1.9 % (0.0-7.0); HEMATOCRIT 30.1 % (37.0-47.0); HEMOGLOBIN 9.6 g/dl (12.0-16.0); LYMPHOCYTES # 2.1 10^3/ul (0.8-2.9); LYMPHOCYTES % 40.9 % (15.0-51.0); MEAN CORPUSCULAR HEMOGLOBIN 29.5 pg (29.0-33.0); MEAN CORPUSCULAR HGB CONC 31.9 g/dl (32.0-37.0); MEAN CORPUSCULAR VOLUME 92.6 fl (82.0-101.0); MEAN PLATELET VOLUME 10.5 fl (7.4-10.4); MONOCYTE # 0.5 10^3/ul (0.3-0.9); NEUTROPHIL # 2.4 10^3/ul (1.6-7.5); NEUTROPHILS % 47.6 % (39.0-77.0); PLATELET COUNT 249 10^3/UL (140-415); RED BLOOD COUNT 3.25 10^6/ul (4.20-5.40); RED CELL DISTRIBUTION WIDTH 14.5 % (11.5-14.5)
[2017-09-07 05:42] LABS: WHITE BLOOD COUNT 5.1 10^3/ul (4.8-10.8)
[2017-09-07 05:55] LABS: INR 0.94; PROTIME 12.7 Sec (11.9-14.9)
[2017-09-07 06:13] LABS: PREALBUMIN 14.6 mg/dl (17.6-36.0)
[2017-09-07 06:23] LABS: ALANINE AMINOTRANSFERASE 46 IU/L (13-69); ALBUMIN 3.3 g/dl (3.3-4.9); ALBUMIN/GLOBULIN RATIO 1.37; ALKALINE PHOSPHATASE 65 IU/L (42-121); ANION GAP 8 (8-16); ASPARTATE AMINO TRANSFERASE 21 IU/L (15-46); BILIRUBIN,INDIRECT 0.4 mg/dl (0-1.1); BILIRUBIN,TOTAL 0.4 mg/dl (0.2-1.3); CALCIUM 7.1 mg/dl (8.4-10.2); CARBON DIOXIDE 24 mmol/L (21-31); CHLORIDE 111 mmol/L (97-110); CREATININE 0.47 mg/dl (0.44-1.00); GLUCOSE 109 mg/dl (70-220); PHOSPHORUS 1.3 mg/dl (2.5-4.9); POTASSIUM 3.5 mmol/L (3.5-5.1); SODIUM 139 mmol/L (135-144); TOTAL PROTEIN 5.7 g/dl (6.1-8.1)
[2017-09-07 06:25] LABS: BLOOD UREA NITROGEN < 2 mg/dl (7-20)
[2017-09-07] MEDS: ONDANSETRON 4 MG INJ IV ×2 (06:45→16:35)
[2017-09-07] MEDS ORDERED: LIDOCAINE 2% (SDV) 5 ML INJ (07:00)
[2017-09-07] MEDS ORDERED: PROPOFOL 200 MG INJ (07:00)
[2017-09-07] MEDS: MEGESTROL (40 MG/ML) 10ML CUP PO ×2 (08:16→21:00)
[2017-09-07] MEDS: ERYTHROMYCIN ETHYL SUCC (80 MG/ML PO SYG) PO ×2 (08:16→12:56)
[2017-09-07] MEDS: ARIPIPRAZOLE 2 MG TAB PO (08:17)
[2017-09-07] MEDS: LISINOPRIL 20 MG TAB PO (08:17)
[2017-09-07] MEDS: SERTRALINE 100 MG TAB PO (08:17)
[2017-09-07] MEDS: METOCLOPRAMIDE 10 MG INJ IV ×2 (08:38→17:33)
[2017-09-07] MEDS: FAMOTIDINE 20 MG INJ IV ×2 (08:38→22:48)
[2017-09-07] MEDS: VENLAFAXINE (XR) 37.5 MG CAP PO (08:42)
[2017-09-07] MEDS: LUBIPROSTONE 8 MCG CAPSULE PO ×2 (08:42→21:00)
[2017-09-07] MEDS: DEXTROSE 5%-0.45% NACL 1,000 ML IV (10:26)
[2017-09-07] MEDS: BISACODYL 10 MG SUPP PR (12:04)
[2017-09-07] MEDS ORDERED: BISACODYL 10 MG SUPP PR (16:00)
[2017-09-07] MEDS ORDERED: MINERAL OIL 133 ML ENEMA PR (16:00)
[2017-09-07] MEDS ORDERED: NA PHOSPHATE/BIPHOS 133 ML ENEMA PR (16:00)
[2017-09-07] MEDS: ERYTHROMYCIN BASE (EC) 250 MG TAB PO ×2 (17:30→22:49)
[2017-09-07 21:39] LABS: OCCULT BLOOD STOOL POSITIVE (NEGATIVE)
[2017-09-08] MEDS: morphine 2 MG INJ IV ×4 (02:05→19:54)
[2017-09-08] MEDS: DEXTROSE 5%-0.45% NACL 1,000 ML IV ×2 (02:05→15:37)
[2017-09-08] MEDS: ONDANSETRON 4 MG INJ IV ×3 (02:05→15:37)
[2017-09-08 05:11] LABS: ADD MAN DIFF? NO
[2017-09-08 05:13] LABS: WHITE BLOOD COUNT 5.7 10^3/ul (4.8-10.8)
[2017-09-08 05:13] LABS: BASOPHILS % 0.4 % (0.0-2.0); EOSINOPHILS # 0.1 10^3/ul (0.0-0.5); EOSINOPHILS % 1.8 % (0.0-7.0); HEMATOCRIT 31.6 % (37.0-47.0); HEMOGLOBIN 10.4 g/dl (12.0-16.0); LYMPHOCYTES # 2.3 10^3/ul (0.8-2.9); LYMPHOCYTES % 39.8 % (15.0-51.0); MEAN CORPUSCULAR HEMOGLOBIN 30.4 pg (29.0-33.0); MEAN CORPUSCULAR HGB CONC 32.9 g/dl (32.0-37.0); MEAN CORPUSCULAR VOLUME 92.4 fl (82.0-101.0); MEAN PLATELET VOLUME 10.5 fl (7.4-10.4); MONOCYTE # 0.6 10^3/ul (0.3-0.9); MONOCYTES % 9.6 % (0.0-11.0); NEUTROPHIL # 2.7 10^3/ul (1.6-7.5); PLATELET COUNT 251 10^3/UL (140-415); RED BLOOD COUNT 3.42 10^6/ul (4.20-5.40); RED CELL DISTRIBUTION WIDTH 14.5 % (11.5-14.5)
[2017-09-08 06:02] LABS: ANION GAP 8 (8-16); CALCIUM 7.3 mg/dl (8.4-10.2); CARBON DIOXIDE 26 mmol/L (21-31); CHLORIDE 110 mmol/L (97-110); CREATININE 0.51 mg/dl (0.44-1.00); GLUCOSE 104 mg/dl (70-220); POTASSIUM 3.2 mmol/L (3.5-5.1); SODIUM 141 mmol/L (135-144)
[2017-09-08 06:05] LABS: BLOOD UREA NITROGEN < 2 mg/dl (7-20)
[2017-09-08] MEDS: SERTRALINE 100 MG TAB PO ×2 (09:00→09:09)
[2017-09-08] MEDS: MEGESTROL (40 MG/ML) 10ML CUP PO ×3 (09:00→21:00)
[2017-09-08] MEDS: LUBIPROSTONE 8 MCG CAPSULE PO ×3 (09:00→21:00)
[2017-09-08] MEDS: ARIPIPRAZOLE 2 MG TAB PO ×2 (09:00→09:09)
[2017-09-08] MEDS: LISINOPRIL 20 MG TAB PO ×2 (09:00→09:09)
[2017-09-08] MEDS: FAMOTIDINE 20 MG INJ IV (09:09)
[2017-09-08] MEDS: ERYTHROMYCIN BASE (EC) 250 MG TAB PO ×3 (09:09→21:20)
[2017-09-08] MEDS: VENLAFAXINE (XR) 37.5 MG CAP PO (09:09)
[2017-09-08] MEDS: SUCRALFATE 1 GM TAB PO ×2 (18:17→21:20)
[2017-09-08] MEDS: PANTOPRAZOLE 40 MG INJ IV (18:17)
[2017-09-08] MEDS: POTASSIUM CHLORIDE 100 ML IVPB (18:18)
[2017-09-08] MEDS: METOCLOPRAMIDE 10 MG INJ IV (18:34)
[2017-09-09] MEDS: morphine 2 MG INJ IV ×3 (01:20→09:18)
[2017-09-09] MEDS: DEXTROSE 5%-0.45% NACL 1,000 ML IV ×3 (02:06→17:02)
[2017-09-09] MEDS: PANTOPRAZOLE 40 MG INJ IV ×2 (05:25→16:56)
[2017-09-09 06:35] LABS: ANION GAP 8 (8-16); CALCIUM 7.5 mg/dl (8.4-10.2); CARBON DIOXIDE 23 mmol/L (21-31); CHLORIDE 111 mmol/L (97-110); CREATININE 0.52 mg/dl (0.44-1.00); GLUCOSE 95 mg/dl (70-220); SODIUM 138 mmol/L (135-144)
[2017-09-09 06:36] LABS: BLOOD UREA NITROGEN < 2 mg/dl (7-20)
[2017-09-09 06:41] LABS: MAGNESIUM 1.8 mg/dl (1.7-2.5)
[2017-09-09] MEDS: SUCRALFATE 1 GM TAB PO ×4 (08:45→20:51)
[2017-09-09] MEDS: ERYTHROMYCIN BASE (EC) 250 MG TAB PO ×3 (08:45→20:51)
[2017-09-09] MEDS: MEGESTROL (40 MG/ML) 10ML CUP PO ×2 (08:47→20:38)
[2017-09-09] MEDS: VENLAFAXINE (XR) 37.5 MG CAP PO (08:47)
[2017-09-09] MEDS: ARIPIPRAZOLE 2 MG TAB PO (08:47)
[2017-09-09] MEDS: LUBIPROSTONE 8 MCG CAPSULE PO (08:47)
[2017-09-09] MEDS: LUBIPROSTONE 24 MCG CAP PO ×2 (08:47→20:37)
[2017-09-09] MEDS: SERTRALINE 100 MG TAB PO (08:48)
[2017-09-09] MEDS: LISINOPRIL 20 MG TAB PO (08:48)
[2017-09-09] MEDS: POLYETHYLENE GLYCOL 17 GM PACKET PO (08:48)
[2017-09-09 09:01] LABS: ADD MAN DIFF? NO
[2017-09-09 09:16] LABS: WHITE BLOOD COUNT 5.6 10^3/ul (4.8-10.8)
[2017-09-09 09:16] LABS: BASOPHILS % 0.4 % (0.0-2.0); EOSINOPHILS # 0.1 10^3/ul (0.0-0.5); EOSINOPHILS % 1.6 % (0.0-7.0); HEMATOCRIT 30.4 % (37.0-47.0); HEMOGLOBIN 9.6 g/dl (12.0-16.0); LYMPHOCYTES # 1.9 10^3/ul (0.8-2.9); LYMPHOCYTES % 33.6 % (15.0-51.0); MEAN CORPUSCULAR HEMOGLOBIN 29.3 pg (29.0-33.0); MEAN CORPUSCULAR HGB CONC 31.6 g/dl (32.0-37.0); MEAN CORPUSCULAR VOLUME 92.7 fl (82.0-101.0); MEAN PLATELET VOLUME 11.8 fl (7.4-10.4); MONOCYTE # 0.5 10^3/ul (0.3-0.9); MONOCYTES % 9.3 % (0.0-11.0); NEUTROPHIL # 3.1 10^3/ul (1.6-7.5); NEUTROPHILS % 54.7 % (39.0-77.0); PLATELET COUNT 245 10^3/UL (140-415); RED BLOOD COUNT 3.28 10^6/ul (4.20-5.40)
[2017-09-09 09:18] LABS: POSITIVE DIFF @See below
[2017-09-09] MEDS: METOCLOPRAMIDE 10 MG INJ IV (12:29)
[2017-09-09] MEDS: morphine 4 MG/ML VIAL IV ×3 (12:30→19:57)
[2017-09-09] MEDS: CARISOPRODOL 350 MG TAB PO ×2 (15:00→21:00)
[2017-09-10] MEDS: morphine 4 MG/ML VIAL IV ×7 (01:33→22:31)
[2017-09-10] MEDS: PANTOPRAZOLE 40 MG INJ IV ×2 (05:21→17:30)
[2017-09-10 05:42] LABS: ADD MAN DIFF? NO
[2017-09-10 05:58] LABS: BASOPHILS % 0.2 % (0.0-2.0); EOSINOPHILS % 0.3 % (0.0-7.0); HEMATOCRIT 30.8 % (37.0-47.0); LYMPHOCYTES # 1.5 10^3/ul (0.8-2.9); LYMPHOCYTES % 14.8 % (15.0-51.0); MEAN CORPUSCULAR HEMOGLOBIN 30.1 pg (29.0-33.0); MEAN CORPUSCULAR HGB CONC 32.5 g/dl (32.0-37.0); MEAN CORPUSCULAR VOLUME 92.8 fl (82.0-101.0); MEAN PLATELET VOLUME 10.6 fl (7.4-10.4); MONOCYTE # 0.9 10^3/ul (0.3-0.9); MONOCYTES % 9.4 % (0.0-11.0); NEUTROPHIL # 7.4 10^3/ul (1.6-7.5); NEUTROPHILS % 74.9 % (39.0-77.0); PLATELET COUNT 276 10^3/UL (140-415); RED BLOOD COUNT 3.32 10^6/ul (4.20-5.40); RED CELL DISTRIBUTION WIDTH 14.8 % (11.5-14.5)
[2017-09-10 05:58] LABS: WHITE BLOOD COUNT 9.8 10^3/ul (4.8-10.8)
[2017-09-10 06:28] LABS: ANION GAP 7 (8-16); CALCIUM 7.3 mg/dl (8.4-10.2); CARBON DIOXIDE 25 mmol/L (21-31); CHLORIDE 110 mmol/L (97-110); CREATININE 0.48 mg/dl (0.44-1.00); GLUCOSE 104 mg/dl (70-220); POTASSIUM 3.3 mmol/L (3.5-5.1); SODIUM 139 mmol/L (135-144)
[2017-09-10 06:30] LABS: BLOOD UREA NITROGEN < 2 mg/dl (7-20)
[2017-09-10] MEDS: METOCLOPRAMIDE 10 MG INJ IV ×2 (08:03→19:04)
[2017-09-10] MEDS: ERYTHROMYCIN BASE (EC) 250 MG TAB PO ×3 (08:08→20:39)
[2017-09-10] MEDS: SUCRALFATE 1 GM TAB PO ×4 (08:09→20:39)
[2017-09-10] MEDS: MEGESTROL (40 MG/ML) 10ML CUP PO ×2 (09:00→20:41)
[2017-09-10] MEDS: SERTRALINE 100 MG TAB PO (09:00)
[2017-09-10] MEDS: VENLAFAXINE (XR) 37.5 MG CAP PO (09:00)
[2017-09-10] MEDS: POLYETHYLENE GLYCOL 17 GM PACKET PO (09:00)
[2017-09-10] MEDS: LISINOPRIL 20 MG TAB PO (09:00)
[2017-09-10] MEDS: CARISOPRODOL 350 MG TAB PO ×3 (09:00→20:40)
[2017-09-10] MEDS: LUBIPROSTONE 24 MCG CAP PO ×2 (09:00→20:40)
[2017-09-10] MEDS: ARIPIPRAZOLE 2 MG TAB PO (09:00)
[2017-09-10] MEDS: morphine 2 MG INJ IV (12:58)
[2017-09-10] MEDS: DEXTROSE 5%-0.45% NACL 1,000 ML IV (13:02)
[2017-09-10] MEDS: POTASSIUM CHLORIDE (SR) 20 MEQ TAB PO (15:27)
[2017-09-10] MEDS: POTASSIUM CHLORIDE 100 ML IVPB (19:47)
[2017-09-11] MEDS: morphine 4 MG/ML VIAL IV ×7 (02:47→21:46)
[2017-09-11] MEDS: PANTOPRAZOLE 40 MG INJ IV ×2 (06:08→17:12)
[2017-09-11] MEDS: METOCLOPRAMIDE 10 MG INJ IV ×2 (06:08→20:00)
[2017-09-11 06:37] LABS: ANION GAP 12 (8-16); BLOOD UREA NITROGEN 5 mg/dl (7-20); CALCIUM 7.3 mg/dl (8.4-10.2); CARBON DIOXIDE 23 mmol/L (21-31); CHLORIDE 106 mmol/L (97-110); CREATININE 0.62 mg/dl (0.44-1.00); GLUCOSE 120 mg/dl (70-220); POTASSIUM 3.5 mmol/L (3.5-5.1); SODIUM 137 mmol/L (135-144)
[2017-09-11] MEDS: SUCRALFATE 1 GM TAB PO ×4 (08:41→20:27)
[2017-09-11] MEDS: POLYETHYLENE GLYCOL 17 GM PACKET PO ×2 (09:00→12:30)
[2017-09-11] MEDS: ERYTHROMYCIN BASE (EC) 250 MG TAB PO ×3 (09:00→20:26)
[2017-09-11] MEDS: ARIPIPRAZOLE 2 MG TAB PO (09:00)
[2017-09-11] MEDS: CARISOPRODOL 350 MG TAB PO ×2 (09:00→13:00)
[2017-09-11] MEDS: SERTRALINE 100 MG TAB PO (09:00)
[2017-09-11] MEDS: VENLAFAXINE (XR) 37.5 MG CAP PO (09:00)
[2017-09-11] MEDS: LISINOPRIL 20 MG TAB PO (09:00)
[2017-09-11] MEDS: MEGESTROL (40 MG/ML) 10ML CUP PO ×2 (09:00→20:27)
[2017-09-11] MEDS: LUBIPROSTONE 24 MCG CAP PO ×2 (09:00→20:26)
[2017-09-11] MEDS: DEXTROSE 5%-0.45% NACL 1,000 ML IV (17:11)
[2017-09-11] MEDS: NA PHOSPHATE/BIPHOS 133 ML ENEMA PR (17:58)
[2017-09-12] MEDS: ONDANSETRON 4 MG INJ IV ×2 (00:16→08:56)
[2017-09-12] MEDS: morphine 4 MG/ML VIAL IV ×6 (00:44→23:55)
[2017-09-12] MEDS: METOCLOPRAMIDE 10 MG INJ IV (04:57)
[2017-09-12] MEDS: PANTOPRAZOLE 40 MG INJ IV ×3 (06:00→18:05)
[2017-09-12] MEDS: DEXTROSE 5%-0.45% NACL 1,000 ML IV (07:30)
[2017-09-12] MEDS: SUCRALFATE 1 GM TAB PO ×4 (08:51→20:47)
[2017-09-12] MEDS: morphine 2 MG INJ IV (08:57)
[2017-09-12] MEDS: VENLAFAXINE (XR) 37.5 MG CAP PO (09:00)
[2017-09-12] MEDS: ARIPIPRAZOLE 2 MG TAB PO (09:00)
[2017-09-12] MEDS: MEGESTROL (40 MG/ML) 10ML CUP PO ×2 (09:00→20:47)
[2017-09-12] MEDS: ERYTHROMYCIN BASE (EC) 250 MG TAB PO ×3 (09:00→20:47)
[2017-09-12] MEDS: POLYETHYLENE GLYCOL 17 GM PACKET PO (09:00)
[2017-09-12] MEDS: LISINOPRIL 20 MG TAB PO (09:00)
[2017-09-12] MEDS: LUBIPROSTONE 24 MCG CAP PO ×2 (09:00→20:47)
[2017-09-12] MEDS: SERTRALINE 100 MG TAB PO (09:00)
[2017-09-13] MEDS: morphine 4 MG/ML VIAL IV ×4 (03:16→15:01)
[2017-09-13 05:31] LABS: ADD MAN DIFF? NO
[2017-09-13 05:41] LABS: WHITE BLOOD COUNT 5.6 10^3/ul (4.8-10.8)
[2017-09-13 05:41] LABS: EOSINOPHILS # 0.1 10^3/ul (0.0-0.5); EOSINOPHILS % 2.3 % (0.0-7.0); HEMATOCRIT 29.4 % (37.0-47.0); HEMOGLOBIN 9.4 g/dl (12.0-16.0); LYMPHOCYTES # 1.7 10^3/ul (0.8-2.9); LYMPHOCYTES % 29.5 % (15.0-51.0); MEAN CORPUSCULAR HEMOGLOBIN 29.7 pg (29.0-33.0); MEAN PLATELET VOLUME 10.4 fl (7.4-10.4); MONOCYTE # 0.5 10^3/ul (0.3-0.9); MONOCYTES % 9.6 % (0.0-11.0); NEUTROPHIL # 3.3 10^3/ul (1.6-7.5); NEUTROPHILS % 57.9 % (39.0-77.0); PLATELET COUNT 295 10^3/UL (140-415); RED BLOOD COUNT 3.16 10^6/ul (4.20-5.40); RED CELL DISTRIBUTION WIDTH 14.6 % (11.5-14.5)
[2017-09-13 05:56] LABS: INR 0.96; PROTIME 12.9 Sec (11.9-14.9)
[2017-09-13 06:07] LABS: ALANINE AMINOTRANSFERASE 23 IU/L (13-69); ALBUMIN 2.9 g/dl (3.3-4.9); ALBUMIN/GLOBULIN RATIO 1.16; ALKALINE PHOSPHATASE 74 IU/L (42-121); ANION GAP 8 (8-16); ASPARTATE AMINO TRANSFERASE 11 IU/L (15-46); BILIRUBIN,INDIRECT 0.3 mg/dl (0-1.1); BILIRUBIN,TOTAL 0.3 mg/dl (0.2-1.3); BLOOD UREA NITROGEN 2 mg/dl (7-20); CALCIUM 7.4 mg/dl (8.4-10.2); CARBON DIOXIDE 27 mmol/L (21-31); CHLORIDE 109 mmol/L (97-110); CREATININE 0.58 mg/dl (0.44-1.00); GLUCOSE 108 mg/dl (70-220); SODIUM 141 mmol/L (135-144); TOTAL PROTEIN 5.4 g/dl (6.1-8.1)
[2017-09-13] MEDS: PANTOPRAZOLE 40 MG INJ IV (06:10)
[2017-09-13] MEDS: DEXTROSE 5%-0.45% NACL 1,000 ML IV (06:10)
[2017-09-13] MEDS: SUCRALFATE 1 GM TAB PO ×2 (09:18→12:13)
[2017-09-13] MEDS: LUBIPROSTONE 24 MCG CAP PO (09:18)
[2017-09-13] MEDS: MEGESTROL (40 MG/ML) 10ML CUP PO (09:18)
[2017-09-13] MEDS: POLYETHYLENE GLYCOL 17 GM PACKET PO (09:18)
[2017-09-13] MEDS: SERTRALINE 100 MG TAB PO (09:18)
[2017-09-13] MEDS: ERYTHROMYCIN BASE (EC) 250 MG TAB PO ×2 (09:19→12:12)
[2017-09-13] MEDS: VENLAFAXINE (XR) 37.5 MG CAP PO (09:19)
[2017-09-13] MEDS: LISINOPRIL 20 MG TAB PO (09:19)
[2017-09-13] MEDS: ARIPIPRAZOLE 2 MG TAB PO (09:19)
[2017-09-13] MEDS: morphine 2 MG INJ IV (09:35)
[2017-09-13] MEDS: POTASSIUM CHLORIDE (SR) 20 MEQ TAB PO (15:26)
== END 2017-09-13 16:45 | disposition home or self-care (01) | DRG 378 ==
LOC: MS1 22:04 → E/R 19:00 → MS1 09-05 11:20
PROC: 0DB68ZX Excision of Stomach, Via Natural or Artificial Opening Endoscopic, Diagnostic (ICD-10-PCS; principal; 2017-09-07 15:30)
DX: K92.0 Hematemesis (principal); K22.10 Ulcer of esophagus without bleeding; K22.4 Dyskinesia of esophagus; K20.9 Esophagitis, unspecified; K29.70 Gastritis, unspecified, without bleeding; D50.0 Iron deficiency anemia secondary to blood loss (chronic); K44.9 Diaphragmatic hernia without obstruction or gangrene; K59.00 Constipation, unspecified; K27.7 Chronic peptic ulcer, site unspecified, without hemorrhage or perforation; R25.1 Tremor, unspecified; I10 Essential (primary) hypertension; D63.8 Anemia in other chronic diseases classified elsewhere; R13.10 Dysphagia, unspecified; E87.6 Hypokalemia
CPT/HCPCS: 36415; 71045; 74018; 74176; 80048; 80053; 82270; 82306; 82607; 82746; 83036; 83735; 84100; 84134; 84443; 84484; 85025; 85610; 85730; 86850; 86900; 86901; 87081; 88305; 88312; 93005; 96374; 96375; 96376; 97110; 97162; 99217; 99285-25

== ENCOUNTER 2018-03-19 19:18 | Inpatient (IN) | payer MEDICARE, OTHER ==
[2018-03-19 20:41] LABS: ADD MAN DIFF? NO
[2018-03-19 20:52] LABS: WHITE BLOOD COUNT 6.4 10^3/ul (4.8-10.8)
[2018-03-19 20:52] LABS: BASOPHILS % 0.3 % (0.0-2.0); EOSINOPHILS # 0.1 10^3/ul (0.0-0.5); EOSINOPHILS % 0.9 % (0.0-7.0); HEMATOCRIT 36.1 % (37.0-47.0); LYMPHOCYTES # 2.4 10^3/ul (0.8-2.9); LYMPHOCYTES % 37.7 % (15.0-51.0); MEAN CORPUSCULAR HEMOGLOBIN 29.7 pg (29.0-33.0); MEAN CORPUSCULAR HGB CONC 33.2 g/dl (32.0-37.0); MEAN CORPUSCULAR VOLUME 89.4 fl (82.0-101.0); MEAN PLATELET VOLUME 10.7 fl (7.4-10.4); MONOCYTE # 0.6 10^3/ul (0.3-0.9); MONOCYTES % 9.1 % (0.0-11.0); NEUTROPHIL # 3.3 10^3/ul (1.6-7.5); NEUTROPHILS % 51.7 % (39.0-77.0); PLATELET COUNT 259 10^3/UL (140-415); RED BLOOD COUNT 4.04 10^6/ul (4.20-5.40); RED CELL DISTRIBUTION WIDTH 13.2 % (11.5-14.5)
[2018-03-19] MEDS: morphine 4 MG/ML VIAL IV ×2 (21:11→22:49)
[2018-03-19] MEDS: ONDANSETRON 4 MG INJ IV ×2 (21:11→22:49)
[2018-03-19 21:17] LABS: ANION GAP 9 (5-13); BLOOD UREA NITROGEN 10 mg/dl (7-20); CALCIUM 10.3 mg/dl (8.4-10.2); CARBON DIOXIDE 28 mmol/L (21-31); CHLORIDE 102 mmol/L (97-110); CREATININE 0.66 mg/dl (0.44-1.00); Estimated GFR > 60 mL/min (>60); GLUCOSE 119 mg/dl (70-220); POTASSIUM 3.9 mmol/L (3.5-5.1); SODIUM 139 mmol/L (135-144)
[2018-03-19 21:28] LABS: TROPONIN-I < 0.012 ng/ml (0.000-0.120)
[2018-03-19] MEDS ORDERED: ACETAMINOPHEN 325 MG TAB PO (22:00)
[2018-03-19] MEDS: ASPIRIN 81 MG TAB PO (23:13)
[2018-03-20] MEDS: morphine 2 MG INJ IV ×6 (00:55→20:18)
[2018-03-20 03:28] LABS: CREATINE KINASE 27 IU/L (23-200)
[2018-03-20 03:40] LABS: CK-MB 0.27 ng/ml (0.0-2.4); TROPONIN-I < 0.012 ng/ml (0.000-0.120)
[2018-03-20] MEDS ORDERED: ACETAMINOPHEN 500 MG TAB (04:43)
[2018-03-20] MEDS: ACETAMINOPHEN 500 MG TAB PO ×3 (04:49→18:14)
[2018-03-20 05:15] LABS: IRON 50 ug/dl (35-150)
[2018-03-20 05:52] LABS: % IRON SATURATION 19 % SAT (22-52); TOTAL IRON BINDING CAPACITY 266 ug/dl (241-421)
[2018-03-20 06:58] LABS: ADD UMIC YES; UR ASCORBIC ACID NEGATIVE (NEGATIVE); UR BILIRUBIN (Dip) NEGATIVE (NEGATIVE); UR BLOOD (Dip) 2+ mg/dL (NEGATIVE); UR CLARITY CLEAR (CLEAR); UR COLOR AMBER (YELLOW); UR GLUCOSE (Dip) NEGATIVE (NEGATIVE); UR KETONES (Dip) TRACE mg/dL (NEGATIVE); UR LEUKOCYTE ESTERASE (Dip) 2+ Leu/ul (NEGATIVE); UR MUCUS MODERATE /HPF (NONE SEEN); UR NITRITE (Dip) NEGATIVE (NEGATIVE); UR RBC 32 /HPF (0-5); UR SPECIFIC GRAVITY (Dip) 1.029 (1.003-1.030); UR SQUAMOUS EPITHELIAL CELL FEW /HPF (FEW); UR TOTAL PROTEIN (Dip) NEGATIVE (NEGATIVE); UR URIC ACID CRYSTAL MODERATE /HPF (NONE SEEN); UR UROBILINOGEN (Dip) 1+ mg/dL (NEGATIVE); UR WBC 23 /HPF (0-5)
[2018-03-20] MEDS: SUCRALFATE 1 GM TAB PO ×4 (08:45→20:12)
[2018-03-20] MEDS: ARIPIPRAZOLE 2 MG TAB PO (08:45)
[2018-03-20] MEDS: VENLAFAXINE (XR) 37.5 MG CAP PO ×3 (08:45→09:00)
[2018-03-20] MEDS: LISINOPRIL 20 MG TAB PO ×3 (08:46→09:00)
[2018-03-20 11:03] LABS: CREATINE KINASE 24 IU/L (23-200)
[2018-03-20 11:14] LABS: CK INDEX 0.9; CK-MB < 0.22 ng/ml (0.0-2.4); TROPONIN-I < 0.012 ng/ml (0.000-0.120)
[2018-03-20] MEDS: DIGOXIN 0.125 MG TAB PO (13:05)
[2018-03-20] MEDS: ONDANSETRON 4 MG INJ IV (18:14)
[2018-03-21] MEDS: ACETAMINOPHEN 500 MG TAB PO ×4 (00:46→17:30)
[2018-03-21] MEDS: morphine 2 MG INJ IV ×5 (01:25→21:44)
[2018-03-21 05:21] LABS: ADD MAN DIFF? NO
[2018-03-21 05:24] LABS: WHITE BLOOD COUNT 6.1 10^3/ul (4.8-10.8)
[2018-03-21 05:24] LABS: BASOPHILS % 0.2 % (0.0-2.0); EOSINOPHILS # 0.1 10^3/ul (0.0-0.5); EOSINOPHILS % 1.6 % (0.0-7.0); HEMATOCRIT 32.7 % (37.0-47.0); HEMOGLOBIN 10.5 g/dl (12.0-16.0); LYMPHOCYTES # 2.3 10^3/ul (0.8-2.9); LYMPHOCYTES % 37.9 % (15.0-51.0); MEAN CORPUSCULAR HEMOGLOBIN 29.7 pg (29.0-33.0); MEAN CORPUSCULAR HGB CONC 32.1 g/dl (32.0-37.0); MEAN CORPUSCULAR VOLUME 92.4 fl (82.0-101.0); MEAN PLATELET VOLUME 10.7 fl (7.4-10.4); MONOCYTE # 0.5 10^3/ul (0.3-0.9); MONOCYTES % 8.4 % (0.0-11.0); NEUTROPHIL # 3.1 10^3/ul (1.6-7.5); NEUTROPHILS % 51.6 % (39.0-77.0); PLATELET COUNT 222 10^3/UL (140-415); RED BLOOD COUNT 3.54 10^6/ul (4.20-5.40); RED CELL DISTRIBUTION WIDTH 13.3 % (11.5-14.5)
[2018-03-21 05:57] LABS: MAGNESIUM 1.9 mg/dl (1.7-2.5)
[2018-03-21 06:40] LABS: ALANINE AMINOTRANSFERASE 28 IU/L (13-69); ALBUMIN 3.3 g/dl (3.3-4.9); ALBUMIN/GLOBULIN RATIO 1.26; ALKALINE PHOSPHATASE 86 IU/L (42-121); ANION GAP 3 (5-13); ASPARTATE AMINO TRANSFERASE 18 IU/L (15-46); BILIRUBIN,INDIRECT 0.2 mg/dl (0-1.1); BILIRUBIN,TOTAL 0.2 mg/dl (0.2-1.3); BLOOD UREA NITROGEN 14 mg/dl (7-20); CALCIUM 9.4 mg/dl (8.4-10.2); CARBON DIOXIDE 32 mmol/L (21-31); CHLORIDE 105 mmol/L (97-110); CREATININE 0.73 mg/dl (0.44-1.00); Estimated GFR > 60 mL/min (>60); GLUCOSE 90 mg/dl (70-220); POTASSIUM 4.3 mmol/L (3.5-5.1); SODIUM 140 mmol/L (135-144); TOTAL PROTEIN 5.9 g/dl (6.1-8.1)
[2018-03-21] MEDS: MAGNESIUM HYDROXIDE 30ML CUP PO (08:22)
[2018-03-21] MEDS: ARIPIPRAZOLE 2 MG TAB PO (08:22)
[2018-03-21] MEDS: SUCRALFATE 1 GM TAB PO ×4 (08:22→21:02)
[2018-03-21] MEDS: LISINOPRIL 20 MG TAB PO (08:23)
[2018-03-21] MEDS: VENLAFAXINE (XR) 37.5 MG CAP PO (08:24)
[2018-03-21] MEDS: ONDANSETRON 4 MG INJ IV (13:21)
[2018-03-21] MEDS: DIGOXIN 0.125 MG TAB PO (13:25)
[2018-03-22] MEDS: ACETAMINOPHEN 500 MG TAB PO ×4 (00:45→17:06)
[2018-03-22] MEDS: morphine 2 MG INJ IV ×5 (01:49→21:20)
[2018-03-22] MEDS: ONDANSETRON 4 MG INJ IV ×2 (04:56→12:54)
[2018-03-22 05:37] LABS: RETICULOCYTE COUNT # 0.059 X10^6 (0.020-0.110); RETICULOCYTE COUNT % 1.5 % (0.5-1.5)
[2018-03-22 05:37] LABS: RETICULOCYTE RBC 3.87
[2018-03-22 06:14] LABS: IRON 65 ug/dl (35-150)
[2018-03-22 06:23] LABS: % IRON SATURATION 24 % SAT (22-52); TOTAL IRON BINDING CAPACITY 270 ug/dl (241-421)
[2018-03-22 06:27] LABS: LACTATE DEHYDROGENASE 373 IU/L (313-618)
[2018-03-22 06:27] LABS: URIC ACID 3.6 mg/dl (3.1-7.9)
[2018-03-22 07:34] LABS: ERYTHROCYTE SEDIMENTATION RATE 16 mm/Hr (0-30)
[2018-03-22] MEDS: SUCRALFATE 1 GM TAB PO ×4 (08:48→21:19)
[2018-03-22] MEDS: ARIPIPRAZOLE 2 MG TAB PO (08:49)
[2018-03-22] MEDS: VENLAFAXINE (XR) 37.5 MG CAP PO (08:49)
[2018-03-22] MEDS: LISINOPRIL 20 MG TAB PO (08:49)
[2018-03-22 09:01] LABS: CARCINOEMBRYONIC ANTIGEN 2.2 ng/ml (0.0-5.0)
[2018-03-22 09:02] LABS: CANCER ANTIGEN 19-9 < 1.4 U/ml (0.0-37.0)
[2018-03-22 10:44] LABS: FOLATE 13.4 ng/ml (2.8-20.0)
[2018-03-22] MEDS: METOCLOPRAMIDE 10 MG INJ IV ×2 (12:47→17:06)
[2018-03-22] MEDS: GABAPENTIN 100 MG CAP PO ×2 (12:47→21:19)
[2018-03-22] MEDS: ERGOCALCIFEROL 50,000 UNIT CAP PO (12:47)
[2018-03-23] MEDS: ACETAMINOPHEN 500 MG TAB PO ×4 (00:21→17:54)
[2018-03-23] MEDS: METOCLOPRAMIDE 10 MG INJ IV ×4 (00:22→17:54)
[2018-03-23] MEDS: morphine LIQ (10 MG/5 ML) CUP PO (01:13)
[2018-03-23] MEDS: ONDANSETRON 4 MG INJ IV ×2 (04:11→21:58)
[2018-03-23] MEDS: ARIPIPRAZOLE 2 MG TAB PO (08:15)
[2018-03-23] MEDS: LISINOPRIL 20 MG TAB PO (08:15)
[2018-03-23] MEDS: GABAPENTIN 100 MG CAP PO ×3 (08:15→21:08)
[2018-03-23] MEDS: SUCRALFATE 1 GM TAB PO ×4 (08:15→21:08)
[2018-03-23] MEDS: VENLAFAXINE (XR) 37.5 MG CAP PO (08:15)
[2018-03-23] MEDS: morphine 2 MG INJ IV ×4 (08:16→21:59)
[2018-03-23] MEDS: ERYTHROMYCIN BASE (EC) 250 MG TAB PO ×2 (13:45→21:58)
[2018-03-23 14:53] LABS: BETA-2 MICROGLOBULIN 2.15 mg/L (< OR = 2.51); PROTEIN, TOTAL 6.4 g/dL (6.1-8.1)
[2018-03-23 23:23] LABS: ALBUMIN 3.9 g/dL (3.8-4.8); ALPHA-1-GLOBULINS 0.2 g/dL (0.2-0.3); ALPHA-2-GLOBULINS 0.7 g/dL (0.5-0.9); BETA 2 GLOBULINS 0.3 g/dL (0.2-0.5); BETA GLOBULINS 0.4 g/dL (0.4-0.6); GAMMA GLOBULINS 0.8 g/dL (0.8-1.7)
[2018-03-24] MEDS: METOCLOPRAMIDE 10 MG INJ IV ×4 (00:18→16:55)
[2018-03-24] MEDS: morphine 2 MG INJ IV ×5 (02:48→21:01)
[2018-03-24 05:15] LABS: ADD MAN DIFF? NO
[2018-03-24 05:22] LABS: WHITE BLOOD COUNT 5.4 10^3/ul (4.8-10.8)
[2018-03-24 05:22] LABS: BASOPHILS % 0.2 % (0.0-2.0); EOSINOPHILS # 0.1 10^3/ul (0.0-0.5); EOSINOPHILS % 1.8 % (0.0-7.0); HEMATOCRIT 33.6 % (37.0-47.0); HEMOGLOBIN 10.9 g/dl (12.0-16.0); LYMPHOCYTES # 1.8 10^3/ul (0.8-2.9); LYMPHOCYTES % 32.4 % (15.0-51.0); MEAN CORPUSCULAR HEMOGLOBIN 29.7 pg (29.0-33.0); MEAN CORPUSCULAR HGB CONC 32.4 g/dl (32.0-37.0); MEAN CORPUSCULAR VOLUME 91.6 fl (82.0-101.0); MEAN PLATELET VOLUME 10.5 fl (7.4-10.4); MONOCYTE # 0.6 10^3/ul (0.3-0.9); MONOCYTES % 10.3 % (0.0-11.0); NEUTROPHILS % 54.9 % (39.0-77.0); PLATELET COUNT 243 10^3/UL (140-415); RED BLOOD COUNT 3.67 10^6/ul (4.20-5.40); RED CELL DISTRIBUTION WIDTH 13.3 % (11.5-14.5)
[2018-03-24 05:28] LABS: ALANINE AMINOTRANSFERASE 25 IU/L (13-69); ALBUMIN 3.7 g/dl (3.3-4.9); ALBUMIN/GLOBULIN RATIO 1.27; ALKALINE PHOSPHATASE 81 IU/L (42-121); ANION GAP 6 (5-13); ASPARTATE AMINO TRANSFERASE 19 IU/L (15-46); BILIRUBIN,INDIRECT 0.3 mg/dl (0-1.1); BILIRUBIN,TOTAL 0.3 mg/dl (0.2-1.3); BLOOD UREA NITROGEN 18 mg/dl (7-20); CALCIUM 9.6 mg/dl (8.4-10.2); CARBON DIOXIDE 31 mmol/L (21-31); CHLORIDE 105 mmol/L (97-110); CREATININE 0.78 mg/dl (0.44-1.00); Estimated GFR > 60 mL/min (>60); GLUCOSE 101 mg/dl (70-220); POTASSIUM 4.1 mmol/L (3.5-5.1); SODIUM 142 mmol/L (135-144); TOTAL PROTEIN 6.6 g/dl (6.1-8.1)
[2018-03-24 05:44] LABS: INR 0.87; PROTIME 11.9 Sec (11.9-14.9); PT RATIO 0.9
[2018-03-24 05:45] LABS: PARTIAL THROMBOPLASTIN TIME 29.1 Sec (23.0-35.0)
[2018-03-24] MEDS: ERYTHROMYCIN BASE (EC) 250 MG TAB PO ×3 (05:46→21:00)
[2018-03-24] MEDS: ACETAMINOPHEN 500 MG TAB PO ×4 (05:47→18:00)
[2018-03-24] MEDS ORDERED: BARIUM SULF 2% 450 ML BTL (BERRY SMOOTHIE) PO (07:00)
[2018-03-24] MEDS: VENLAFAXINE (XR) 37.5 MG CAP PO (08:34)
[2018-03-24] MEDS: SUCRALFATE 1 GM TAB PO ×4 (08:34→21:00)
[2018-03-24] MEDS: ARIPIPRAZOLE 2 MG TAB PO (08:34)
[2018-03-24] MEDS: GABAPENTIN 100 MG CAP PO ×3 (08:34→21:00)
[2018-03-24] MEDS: LISINOPRIL 20 MG TAB PO (08:35)
[2018-03-24] MEDS ORDERED: PROPOFOL 40 ML (13:40)
[2018-03-24] MEDS: ONDANSETRON 4 MG INJ IV (16:55)
[2018-03-25] MEDS: METOCLOPRAMIDE 10 MG INJ IV ×3 (00:02→13:16)
[2018-03-25] MEDS: morphine 2 MG INJ IV ×3 (02:19→11:15)
[2018-03-25] MEDS: ACETAMINOPHEN 500 MG TAB PO ×3 (05:54→13:16)
[2018-03-25] MEDS: ERYTHROMYCIN BASE (EC) 250 MG TAB PO ×2 (05:55→13:16)
[2018-03-25] MEDS ORDERED: BARIUM SULF 2% 450 ML BTL (BERRY SMOOTHIE) PO (07:00)
[2018-03-25] MEDS: LISINOPRIL 20 MG TAB PO (09:20)
[2018-03-25] MEDS: ARIPIPRAZOLE 2 MG TAB PO (09:20)
[2018-03-25] MEDS: GABAPENTIN 100 MG CAP PO ×2 (09:20→13:16)
[2018-03-25] MEDS: SUCRALFATE 1 GM TAB PO ×2 (09:20→13:16)
[2018-03-25] MEDS: VENLAFAXINE (XR) 37.5 MG CAP PO (09:20)
[2018-03-25 09:57] LABS: CA27.29 18 U/mL (<38)
[2018-03-26 00:43] LABS: CANCER ANTIGEN 15-3 10 U/mL (<32)
== END 2018-03-25 14:04 | disposition home or self-care (01) | DRG 392 ==
LOC: 6WM 21:39 → E/R 19:18
PROC: 0DJ08ZZ Inspection of Upper Intestinal Tract, Via Natural or Artificial Opening Endoscopic (ICD-10-PCS; principal; 2018-03-24 13:00)
DX: K31.84 Gastroparesis (principal); M48.54XA Collapsed vertebra, not elsewhere classified, thoracic region, initial encounter for fracture; E46 Unspecified protein-calorie malnutrition; N39.0 Urinary tract infection, site not specified; Z87.11 Personal history of peptic ulcer disease; K21.0 Gastro-esophageal reflux disease with esophagitis; K29.70 Gastritis, unspecified, without bleeding; E86.0 Dehydration; R48.8 Other symbolic dysfunctions; Z68.26 Body mass index [BMI] 26.0-26.9, adult; M81.0 Age-related osteoporosis without current pathological fracture; G47.33 Obstructive sleep apnea (adult) (pediatric); G89.4 Chronic pain syndrome; Z96.642 Presence of left artificial hip joint; R32 Unspecified urinary incontinence; F32.9 Major depressive disorder, single episode, unspecified; F41.9 Anxiety disorder, unspecified; F43.20 Adjustment disorder, unspecified; R41.3 Other amnesia; D64.9 Anemia, unspecified; E83.39 Other disorders of phosphorus metabolism; Z90.49 Acquired absence of other specified parts of digestive tract; K59.00 Constipation, unspecified; K44.9 Diaphragmatic hernia without obstruction or gangrene; I25.10 Atherosclerotic heart disease of native coronary artery without angina pectoris; I25.2 Old myocardial infarction; I11.0 Hypertensive heart disease with heart failure; I50.9 Heart failure, unspecified; M43.26 Fusion of spine, lumbar region; K30 Functional dyspepsia; K20.9 Esophagitis, unspecified; M48.061 Spinal stenosis, lumbar region without neurogenic claudication; M89.9 Disorder of bone, unspecified; R31.9 Hematuria, unspecified; I69.991 Dysphagia following unspecified cerebrovascular disease; I69.922 Dysarthria following unspecified cerebrovascular disease
CPT/HCPCS: 36415; 71045; 71250; 72125; 72128; 72131; 72141; 72146; 72158; 74176; 78264; 78306; 80048; 80053; 81001; 82306; 82378; 82550; 82553; 82607; 82728; 82746; 83540; 83615; 83735; 84155; 84165; 84443; 84484; 84560; 85025; 85045; 85610; 85651; 85730; 86300; 86301; 86304; 93005; 93306; 96374; 96375; 99285-25; A9503; G0378

== ENCOUNTER 2018-05-03 13:27 | Inpatient (IN) | payer MEDICARE, OTHER ==
[2018-05-03 16:50] LABS: ADD MAN DIFF? NO
[2018-05-03 16:54] LABS: WHITE BLOOD COUNT 8.3 10^3/ul (4.8-10.8)
[2018-05-03 16:54] LABS: BASOPHILS % 0.2 % (0.0-2.0); EOSINOPHILS # 0.1 10^3/ul (0.0-0.5); EOSINOPHILS % 0.7 % (0.0-7.0); HEMOGLOBIN 11.8 g/dl (12.0-16.0); LYMPHOCYTES # 2.5 10^3/ul (0.8-2.9); LYMPHOCYTES % 30.1 % (15.0-51.0); MEAN CORPUSCULAR HEMOGLOBIN 29.3 pg (29.0-33.0); MEAN CORPUSCULAR HGB CONC 32.8 g/dl (32.0-37.0); MEAN CORPUSCULAR VOLUME 89.3 fl (82.0-101.0); MEAN PLATELET VOLUME 10.2 fl (7.4-10.4); MONOCYTE # 0.7 10^3/ul (0.3-0.9); MONOCYTES % 8.5 % (0.0-11.0); PLATELET COUNT 327 10^3/UL (140-415); RED BLOOD COUNT 4.03 10^6/ul (4.20-5.40); RED CELL DISTRIBUTION WIDTH 12.9 % (11.5-14.5)
[2018-05-03 17:12] LABS: ANION GAP 12 (5-13); BLOOD UREA NITROGEN 12 mg/dl (7-20); CALCIUM 10.3 mg/dl (8.4-10.2); CARBON DIOXIDE 23 mmol/L (21-31); CHLORIDE 108 mmol/L (97-110); CREATININE 0.78 mg/dl (0.44-1.00); Estimated GFR > 60 mL/min (>60); GLUCOSE 117 mg/dl (70-220); POTASSIUM 3.6 mmol/L (3.5-5.1); SODIUM 143 mmol/L (135-144)
[2018-05-03 17:15] LABS: DIGOXIN 0.7 ng/ml (1.0-2.0)
[2018-05-03] MEDS: ONDANSETRON 4 MG INJ IV (18:01)
[2018-05-03] MEDS: morphine 2 MG INJ IV (18:02)
[2018-05-03] MEDS: morphine 4 MG/ML VIAL IV ×2 (19:24→22:55)
[2018-05-03] MEDS ORDERED: ACETAMINOPHEN 650 MG SUPP PR (20:00)
[2018-05-03] MEDS: PANTOPRAZOLE (EC) 40 MG TAB PO (21:00)
[2018-05-03] MEDS: VENLAFAXINE 37.5 MG TAB PO (21:00)
[2018-05-03] MEDS: ERGOCALCIFEROL 50,000 UNIT CAP PO (21:00)
[2018-05-03] MEDS: SUCRALFATE 1 GM TAB PO (21:00)
[2018-05-03] MEDS: DEXTROSE 5%-0.9% NACL 1,000 ML IV (21:58)
[2018-05-04] MEDS: CLONIDINE 0.1 MG/24 HR PATCH TRANSDERM (01:21)
[2018-05-04] MEDS: morphine 4 MG/ML VIAL IV ×5 (03:16→22:14)
[2018-05-04] MEDS: ONDANSETRON 4 MG INJ IV ×3 (03:42→18:06)
[2018-05-04 05:05] LABS: ADD MAN DIFF? NO
[2018-05-04 05:08] LABS: BASOPHILS % 0.4 % (0.0-2.0); EOSINOPHILS # 0.1 10^3/ul (0.0-0.5); EOSINOPHILS % 1.1 % (0.0-7.0); HEMATOCRIT 33.2 % (37.0-47.0); HEMOGLOBIN 10.6 g/dl (12.0-16.0); LYMPHOCYTES # 1.9 10^3/ul (0.8-2.9); LYMPHOCYTES % 34.1 % (15.0-51.0); MEAN CORPUSCULAR HEMOGLOBIN 29.2 pg (29.0-33.0); MEAN CORPUSCULAR HGB CONC 31.9 g/dl (32.0-37.0); MEAN CORPUSCULAR VOLUME 91.5 fl (82.0-101.0); MONOCYTE # 0.6 10^3/ul (0.3-0.9); MONOCYTES % 10.2 % (0.0-11.0); NEUTROPHILS % 53.8 % (39.0-77.0); PLATELET COUNT 253 10^3/UL (140-415); RED BLOOD COUNT 3.63 10^6/ul (4.20-5.40); RED CELL DISTRIBUTION WIDTH 13.1 % (11.5-14.5); RETICULOCYTE COUNT # 0.064 X10^6 (0.020-0.110); RETICULOCYTE COUNT % 1.8 % (0.5-1.5)
[2018-05-04 05:08] LABS: RETICULOCYTE RBC 3.66; WHITE BLOOD COUNT 5.5 10^3/ul (4.8-10.8)
[2018-05-04 05:28] LABS: INR 0.89; PROTIME 12.2 Sec (11.9-14.9)
[2018-05-04 05:31] LABS: URIC ACID 3.9 mg/dl (3.1-7.9)
[2018-05-04 05:32] LABS: ANION GAP 10 (5-13); BLOOD UREA NITROGEN 9 mg/dl (7-20); CALCIUM 9.8 mg/dl (8.4-10.2); CARBON DIOXIDE 29 mmol/L (21-31); CHLORIDE 106 mmol/L (97-110); CREATININE 0.75 mg/dl (0.44-1.00); Estimated GFR > 60 mL/min (>60); GLUCOSE 109 mg/dl (70-220); MAGNESIUM 1.9 mg/dl (1.7-2.5); POTASSIUM 3.4 mmol/L (3.5-5.1); SODIUM 145 mmol/L (135-144)
[2018-05-04] MEDS: PANTOPRAZOLE (EC) 40 MG TAB PO (06:24)
[2018-05-04 06:38] LABS: FOLATE 16.8 ng/ml (2.8-20.0)
[2018-05-04 07:15] LABS: IRON 50 ug/dl (35-150)
[2018-05-04 07:24] LABS: % IRON SATURATION 20 % SAT (22-52); TOTAL IRON BINDING CAPACITY 245 ug/dl (241-421)
[2018-05-04 07:52] LABS: ERYTHROCYTE SEDIMENTATION RATE 20 mm/Hr (0-30)
[2018-05-04] MEDS ORDERED: DIGOXIN 0.125 MG TAB PO (09:00)
[2018-05-04] MEDS ORDERED: LISINOPRIL 20 MG TAB PO (09:00)
[2018-05-04 10:16] LABS: ALANINE AMINOTRANSFERASE 15 IU/L (13-69); ALBUMIN 3.8 g/dl (3.3-4.9); ALKALINE PHOSPHATASE 101 IU/L (42-121); ANION GAP 8 (5-13); ASPARTATE AMINO TRANSFERASE 14 IU/L (15-46); BILIRUBIN,INDIRECT 0.3 mg/dl (0-1.1); BILIRUBIN,TOTAL 0.3 mg/dl (0.2-1.3); BLOOD UREA NITROGEN 7 mg/dl (7-20); CALCIUM 9.4 mg/dl (8.4-10.2); CARBON DIOXIDE 30 mmol/L (21-31); CHLORIDE 105 mmol/L (97-110); CREATININE 0.65 mg/dl (0.44-1.00); Estimated GFR > 60 mL/min (>60); GLUCOSE 110 mg/dl (70-220); POTASSIUM 3.3 mmol/L (3.5-5.1); SODIUM 143 mmol/L (135-144); TOTAL PROTEIN 6.5 g/dl (6.1-8.1)
[2018-05-04] MEDS: D5W-0.45 NACL + KCL 20 MEQ 1,000 ML IV (10:46)
[2018-05-04] MEDS: ARIPIPRAZOLE 2 MG TAB PO (10:47)
[2018-05-04] MEDS: SUCRALFATE 1 GM TAB PO ×2 (10:47→20:13)
[2018-05-04] MEDS: ERYTHROMYCIN BASE (EC) 250 MG TAB PO ×2 (11:57→20:13)
[2018-05-04] MEDS ORDERED: PANTOPRAZOLE 40 MG INJ IV (18:00)
[2018-05-04] MEDS: PANTOPRAZOLE 40 MG INJ IV (18:06)
[2018-05-04] MEDS: VENLAFAXINE 37.5 MG TAB PO (20:13)
[2018-05-05 04:41] LABS: PROTEIN, TOTAL 5.9 g/dL (6.1-8.1)
[2018-05-05 05:11] LABS: ADD MAN DIFF? NO
[2018-05-05 05:26] LABS: BASOPHILS % 0.3 % (0.0-2.0); EOSINOPHILS # 0.1 10^3/ul (0.0-0.5); HEMATOCRIT 32.1 % (37.0-47.0); HEMOGLOBIN 10.3 g/dl (12.0-16.0); LYMPHOCYTES # 0.9 10^3/ul (0.8-2.9); LYMPHOCYTES % 15.9 % (15.0-51.0); MEAN CORPUSCULAR HGB CONC 32.1 g/dl (32.0-37.0); MEAN CORPUSCULAR VOLUME 90.4 fl (82.0-101.0); MEAN PLATELET VOLUME 10.5 fl (7.4-10.4); MONOCYTE # 0.6 10^3/ul (0.3-0.9); NEUTROPHIL # 4.1 10^3/ul (1.6-7.5); NEUTROPHILS % 72.5 % (39.0-77.0); PLATELET COUNT 244 10^3/UL (140-415); RED BLOOD COUNT 3.55 10^6/ul (4.20-5.40); RED CELL DISTRIBUTION WIDTH 12.9 % (11.5-14.5)
[2018-05-05 05:26] LABS: WHITE BLOOD COUNT 5.7 10^3/ul (4.8-10.8)
[2018-05-05] MEDS: morphine 4 MG/ML VIAL IV ×4 (05:39→21:26)
[2018-05-05] MEDS: PANTOPRAZOLE 40 MG INJ IV ×2 (05:39→18:27)
[2018-05-05] MEDS: ONDANSETRON 4 MG INJ IV ×2 (06:35→11:58)
[2018-05-05] MEDS ORDERED: PHENYLephrine 10 MG INJ (07:00)
[2018-05-05 09:01] LABS: ANION GAP 12 (5-13); BLOOD UREA NITROGEN 8 mg/dl (7-20); CALCIUM 9.6 mg/dl (8.4-10.2); CARBON DIOXIDE 28 mmol/L (21-31); CHLORIDE 101 mmol/L (97-110); Estimated GFR > 60 mL/min (>60); GLUCOSE 107 mg/dl (70-220); POTASSIUM 3.8 mmol/L (3.5-5.1); SODIUM 141 mmol/L (135-144)
[2018-05-05] MEDS: ERYTHROMYCIN BASE (EC) 250 MG TAB PO ×2 (09:11→21:25)
[2018-05-05] MEDS: SUCRALFATE 1 GM TAB PO ×2 (09:11→21:25)
[2018-05-05] MEDS: ARIPIPRAZOLE 2 MG TAB PO (09:11)
[2018-05-05] MEDS: D5W-0.45 NACL + KCL 20 MEQ 1,000 ML IV (11:42)
[2018-05-05] MEDS ORDERED: GELATIN SIZE 100 SPONGE (14:00)
[2018-05-05] MEDS ORDERED: ROCURONIUM 50 MG INJ (14:34)
[2018-05-05] MEDS ORDERED: LIDOCAINE 2% (SDV) 5 ML INJ (14:34)
[2018-05-05] MEDS ORDERED: PROPOFOL 20 ML (14:34)
[2018-05-05] MEDS ORDERED: EPHEDrine 50 MG INJ (14:56)
[2018-05-05] MEDS: POLYMYXIN/BACITRACIN 1L IRRIG (15:10)
[2018-05-05] MEDS: THROMBIN 5000 UNIT VIAL (15:10)
[2018-05-05] MEDS: ROPIVACAINE 0.5 % 30 ML VIAL (15:10)
[2018-05-05] MEDS ORDERED: CEFAZOLIN 1 GM INJ ×2 (15:10)
[2018-05-05] MEDS ORDERED: DEXAMETHASONE 4 MG/ML 5 ML INJ (15:19)
[2018-05-05] MEDS ORDERED: FAMOTIDINE 20 MG INJ (15:19)
[2018-05-05] MEDS ORDERED: ONDANSETRON 4 MG INJ (15:19)
[2018-05-05] MEDS ORDERED: LABETALOL HCL 20MG INJ IV (15:30)
[2018-05-05] MEDS ORDERED: morphine (1 MG/ML) 10ML SYRINGE IV ×2 (15:30)
[2018-05-05] MEDS ORDERED: DIPHENHYDRAMINE 50 MG INJ IV (15:30)
[2018-05-05] MEDS ORDERED: EPHEDrine SULFATE 50 MG/5 ML SYG IV (15:30)
[2018-05-05] MEDS ORDERED: ONDANSETRON 4 MG INJ IV (15:30)
[2018-05-05] MEDS ORDERED: hydrALAzine 20 MG INJ IV (15:30)
[2018-05-05] MEDS ORDERED: MEPERIDINE 25 MG INJ IV (15:30)
[2018-05-05 15:41] LABS: ALBUMIN 3.5 g/dL (3.8-4.8); ALPHA-1-GLOBULINS 0.3 g/dL (0.2-0.3); ALPHA-2-GLOBULINS 0.7 g/dL (0.5-0.9); BETA 2 GLOBULINS 0.3 g/dL (0.2-0.5); BETA GLOBULINS 0.4 g/dL (0.4-0.6); GAMMA GLOBULINS 0.8 g/dL (0.8-1.7)
[2018-05-05] MEDS ORDERED: NEOSTIGMINE 10 MG INJ (15:54)
[2018-05-05] MEDS ORDERED: GLYCOPYRROLATE 0.4 MG INJ ×2 (15:54→16:04)
[2018-05-05] MEDS ORDERED: SUGAMMADEX SODIUM 200 MG/2 ML VIAL IV (16:07)
[2018-05-05] MEDS ORDERED: LABETALOL HCL 20MG INJ (16:16)
[2018-05-05] MEDS ORDERED: FENTAnyl 50 MCG/ML VIAL (16:59)
[2018-05-05] MEDS: FENTAnyl 50 MCG/ML VIAL IV (17:06)
[2018-05-05 18:46] LABS: PTH CALCIUM 9.3 mg/dL (8.6-10.4)
[2018-05-05] MEDS: VENLAFAXINE 37.5 MG TAB PO (21:25)
[2018-05-06] MEDS: morphine 4 MG/ML VIAL IV ×8 (01:18→23:20)
[2018-05-06] MEDS: PANTOPRAZOLE 40 MG INJ IV ×2 (05:26→17:30)
[2018-05-06] MEDS: ONDANSETRON 4 MG INJ IV ×2 (07:39→15:16)
[2018-05-06 08:36] LABS: PTH INTACT 38 pg/mL (14-64)
[2018-05-06] MEDS: SUCRALFATE 1 GM TAB PO ×2 (09:38→20:23)
[2018-05-06] MEDS: ERYTHROMYCIN BASE (EC) 250 MG TAB PO ×2 (09:39→20:22)
[2018-05-06] MEDS: ARIPIPRAZOLE 2 MG TAB PO (09:39)
[2018-05-06] MEDS: D5W-0.45 NACL + KCL 20 MEQ 1,000 ML IV ×2 (10:30→18:59)
[2018-05-06] MEDS: INFLUENZA VIRUS VACCINE 0.5 ML (DISPENSING) IM* (16:25)
[2018-05-06] MEDS: VENLAFAXINE 37.5 MG TAB PO (20:22)
[2018-05-06] MEDS: GABAPENTIN 100 MG CAP PO (21:21)
[2018-05-07] MEDS: morphine 4 MG/ML VIAL IV ×6 (02:11→18:00)
[2018-05-07] MEDS: PANTOPRAZOLE 40 MG INJ IV (05:19)
[2018-05-07] MEDS: ARIPIPRAZOLE 2 MG TAB PO ×2 (08:28→10:08)
[2018-05-07] MEDS: ERYTHROMYCIN BASE (EC) 250 MG TAB PO ×3 (08:28→22:01)
[2018-05-07] MEDS: SUCRALFATE 1 GM TAB PO ×3 (08:29→22:01)
[2018-05-07] MEDS: GABAPENTIN 100 MG CAP PO ×4 (08:29→22:01)
[2018-05-07] MEDS: ONDANSETRON 4 MG INJ IV (11:30)
[2018-05-07] MEDS: PANTOPRAZOLE (EC) 40 MG TAB PO (18:00)
[2018-05-07] MEDS: VENLAFAXINE 37.5 MG TAB PO (22:01)
[2018-05-07] MEDS: LUBIPROSTONE 24 MCG CAP PO (22:01)
[2018-05-07] MEDS: D5W-0.45 NACL + KCL 20 MEQ 1,000 ML IV (22:02)
[2018-05-08] MEDS: ONDANSETRON 4 MG INJ IV (01:47)
[2018-05-08] MEDS: morphine 4 MG/ML VIAL IV ×7 (01:53→22:09)
[2018-05-08 05:14] LABS: ADD MAN DIFF? NO
[2018-05-08 05:19] LABS: BASOPHILS % 0.3 % (0.0-2.0); EOSINOPHILS % 0.3 % (0.0-7.0); HEMATOCRIT 31.3 % (37.0-47.0); HEMOGLOBIN 10.2 g/dl (12.0-16.0); LYMPHOCYTES # 1.1 10^3/ul (0.8-2.9); LYMPHOCYTES % 14.3 % (15.0-51.0); MEAN CORPUSCULAR HGB CONC 32.6 g/dl (32.0-37.0); MEAN CORPUSCULAR VOLUME 88.9 fl (82.0-101.0); MEAN PLATELET VOLUME 10.2 fl (7.4-10.4); MONOCYTES % 12.1 % (0.0-11.0); NEUTROPHIL # 5.7 10^3/ul (1.6-7.5); NEUTROPHILS % 72.2 % (39.0-77.0); PLATELET COUNT 238 10^3/UL (140-415); RED BLOOD COUNT 3.52 10^6/ul (4.20-5.40); RED CELL DISTRIBUTION WIDTH 13.3 % (11.5-14.5)
[2018-05-08 05:19] LABS: WHITE BLOOD COUNT 7.9 10^3/ul (4.8-10.8)
[2018-05-08] MEDS: PANTOPRAZOLE (EC) 40 MG TAB PO ×2 (06:02→18:14)
[2018-05-08 06:05] LABS: ALANINE AMINOTRANSFERASE 18 IU/L (13-69); ALBUMIN 3.5 g/dl (3.3-4.9); ALBUMIN/GLOBULIN RATIO 1.25; ALKALINE PHOSPHATASE 101 IU/L (42-121); ANION GAP 9 (5-13); ASPARTATE AMINO TRANSFERASE 14 IU/L (15-46); BILIRUBIN,INDIRECT 0.6 mg/dl (0-1.1); BILIRUBIN,TOTAL 0.6 mg/dl (0.2-1.3); BLOOD UREA NITROGEN 9 mg/dl (7-20); CALCIUM 9.5 mg/dl (8.4-10.2); CARBON DIOXIDE 31 mmol/L (21-31); CHLORIDE 97 mmol/L (97-110); CREATININE 0.66 mg/dl (0.44-1.00); Estimated GFR > 60 mL/min (>60); GLUCOSE 131 mg/dl (70-220); POTASSIUM 3.5 mmol/L (3.5-5.1); SODIUM 137 mmol/L (135-144); TOTAL PROTEIN 6.3 g/dl (6.1-8.1)
[2018-05-08] MEDS: LUBIPROSTONE 24 MCG CAP PO ×2 (09:18→20:14)
[2018-05-08] MEDS: SUCRALFATE 1 GM TAB PO ×2 (09:19→20:14)
[2018-05-08] MEDS: ERYTHROMYCIN BASE (EC) 250 MG TAB PO ×2 (09:19→20:14)
[2018-05-08] MEDS: ARIPIPRAZOLE 2 MG TAB PO (09:19)
[2018-05-08] MEDS: GABAPENTIN 100 MG CAP PO ×3 (10:07→20:14)
[2018-05-08] MEDS: METHYLNALTREXONE 12 MG/0.6 ML VIAL SC (15:18)
[2018-05-08] MEDS: VENLAFAXINE 37.5 MG TAB PO (20:14)
[2018-05-08] MEDS: D5W-0.45 NACL + KCL 20 MEQ 1,000 ML IV (22:12)
[2018-05-09] MEDS: morphine 4 MG/ML VIAL IV ×3 (02:16→16:07)
[2018-05-09] MEDS: PANTOPRAZOLE (EC) 40 MG TAB PO ×2 (05:50→17:58)
[2018-05-09] MEDS: ERYTHROMYCIN BASE (EC) 250 MG TAB PO ×2 (08:34→20:48)
[2018-05-09] MEDS: ARIPIPRAZOLE 2 MG TAB PO (08:34)
[2018-05-09] MEDS: GABAPENTIN 100 MG CAP PO ×3 (08:34→20:48)
[2018-05-09] MEDS: SUCRALFATE 1 GM TAB PO ×2 (08:34→20:48)
[2018-05-09] MEDS: LUBIPROSTONE 24 MCG CAP PO ×2 (08:34→20:48)
[2018-05-09] MEDS: NA PHOSPHATE/BIPHOS 133 ML ENEMA PR (17:54)
[2018-05-09] MEDS: BISACODYL 10 MG SUPP PR (18:24)
[2018-05-09] MEDS: POLYETHYLENE GLYCOL 17 GM PACKET PO ×2 (20:48→20:57)
[2018-05-09] MEDS: HYDROCODONE/APAP (7.5/325) TAB PO (20:48)
[2018-05-09] MEDS: VENLAFAXINE 37.5 MG TAB PO (20:48)
[2018-05-10] MEDS: morphine 4 MG/ML VIAL IV ×3 (02:08→13:41)
[2018-05-10] MEDS: PANTOPRAZOLE (EC) 40 MG TAB PO ×2 (06:05→17:38)
[2018-05-10] MEDS: D5W-0.45 NACL + KCL 20 MEQ 1,000 ML IV (06:05)
[2018-05-10] MEDS: SUCRALFATE 1 GM TAB PO ×2 (09:24→22:09)
[2018-05-10] MEDS: LUBIPROSTONE 24 MCG CAP PO ×2 (09:24→22:10)
[2018-05-10] MEDS: HYDROCODONE/APAP (7.5/325) TAB PO ×2 (09:24→17:37)
[2018-05-10] MEDS: ARIPIPRAZOLE 2 MG TAB PO (09:24)
[2018-05-10] MEDS: DOCUSATE SODIUM 100 MG CAP PO (09:24)
[2018-05-10] MEDS: GABAPENTIN 100 MG CAP PO ×3 (09:24→22:09)
[2018-05-10] MEDS: ERYTHROMYCIN BASE (EC) 250 MG TAB PO ×2 (09:29→22:31)
[2018-05-10] MEDS: ERGOCALCIFEROL 50,000 UNIT CAP PO (09:31)
[2018-05-10] MEDS: METHYLNALTREXONE 12 MG/0.6 ML VIAL SC (15:11)
[2018-05-10] MEDS: POLYETHYLENE GLYCOL 17 GM PACKET PO (15:12)
[2018-05-10] MEDS: CLONIDINE 0.1 MG/24 HR PATCH TRANSDERM (22:13)
[2018-05-10] MEDS: VENLAFAXINE 75 MG TABLET PO (22:16)
[2018-05-11] MEDS: morphine 4 MG/ML VIAL IV ×5 (02:41→22:16)
[2018-05-11] MEDS: PANTOPRAZOLE (EC) 40 MG TAB PO ×2 (06:30→17:11)
[2018-05-11] MEDS: D5W-0.45 NACL + KCL 20 MEQ 1,000 ML IV (06:38)
[2018-05-11] MEDS: HYDROCODONE/APAP (7.5/325) TAB PO ×2 (09:06→16:09)
[2018-05-11] MEDS: SUCRALFATE 1 GM TAB PO ×2 (09:06→20:28)
[2018-05-11] MEDS: LUBIPROSTONE 24 MCG CAP PO ×2 (09:06→20:28)
[2018-05-11] MEDS: POLYETHYLENE GLYCOL 17 GM PACKET PO (09:07)
[2018-05-11] MEDS: DOCUSATE SODIUM 100 MG CAP PO (09:07)
[2018-05-11] MEDS: ARIPIPRAZOLE 2 MG TAB PO (09:08)
[2018-05-11] MEDS: GABAPENTIN 100 MG CAP PO ×3 (09:08→20:28)
[2018-05-11] MEDS: ERYTHROMYCIN BASE (DR) 250 MG CAP PO ×2 (09:26→21:00)
[2018-05-11] MEDS: BISACODYL 10 MG SUPP PR (18:30)
[2018-05-11] MEDS: VENLAFAXINE 75 MG TABLET PO (20:28)
[2018-05-11] MEDS ORDERED: VENLAFAXINE 75 MG TABLET PO (21:00)
[2018-05-12] MEDS: morphine 4 MG/ML VIAL IV ×4 (02:51→18:05)
[2018-05-12 04:52] LABS: ADD MAN DIFF? NO
[2018-05-12 04:56] LABS: BASOPHILS % 0.3 % (0.0-2.0); EOSINOPHILS # 0.2 10^3/ul (0.0-0.5); EOSINOPHILS % 2.2 % (0.0-7.0); LYMPHOCYTES # 1.8 10^3/ul (0.8-2.9); LYMPHOCYTES % 27.5 % (15.0-51.0); MEAN CORPUSCULAR HGB CONC 32.1 g/dl (32.0-37.0); MEAN CORPUSCULAR VOLUME 90.3 fl (82.0-101.0); MEAN PLATELET VOLUME 9.7 fl (7.4-10.4); MONOCYTE # 0.8 10^3/ul (0.3-0.9); MONOCYTES % 12.2 % (0.0-11.0); NEUTROPHIL # 3.8 10^3/ul (1.6-7.5); NEUTROPHILS % 57.1 % (39.0-77.0); PLATELET COUNT 291 10^3/UL (140-415); RED CELL DISTRIBUTION WIDTH 13.1 % (11.5-14.5)
[2018-05-12 04:56] LABS: WHITE BLOOD COUNT 6.7 10^3/ul (4.8-10.8)
[2018-05-12 05:20] LABS: ANION GAP 8 (5-13); BLOOD UREA NITROGEN 8 mg/dl (7-20); CALCIUM 9.3 mg/dl (8.4-10.2); CARBON DIOXIDE 29 mmol/L (21-31); CHLORIDE 101 mmol/L (97-110); CREATININE 0.64 mg/dl (0.44-1.00); Estimated GFR > 60 mL/min (>60); GLUCOSE 118 mg/dl (70-220); POTASSIUM 3.6 mmol/L (3.5-5.1); SODIUM 138 mmol/L (135-144)
[2018-05-12] MEDS: PANTOPRAZOLE (EC) 40 MG TAB PO ×2 (05:49→18:09)
[2018-05-12] MEDS: ARIPIPRAZOLE 2 MG TAB PO (09:12)
[2018-05-12] MEDS: GABAPENTIN 100 MG CAP PO ×3 (09:14→21:50)
[2018-05-12] MEDS: LUBIPROSTONE 24 MCG CAP PO ×2 (09:14→21:50)
[2018-05-12] MEDS: SUCRALFATE 1 GM TAB PO ×2 (09:14→21:50)
[2018-05-12] MEDS: POLYETHYLENE GLYCOL 17 GM PACKET PO (09:14)
[2018-05-12] MEDS: DOCUSATE SODIUM 100 MG CAP PO (09:14)
[2018-05-12] MEDS: D5W-0.45 NACL + KCL 20 MEQ 1,000 ML IV (10:30)
[2018-05-12] MEDS: ERYTHROMYCIN BASE (DR) 250 MG CAP PO ×2 (10:35→21:50)
[2018-05-12] MEDS: ONDANSETRON 4 MG INJ IV ×2 (13:23→19:56)
[2018-05-12] MEDS: VENLAFAXINE 75 MG TABLET PO (23:54)
[2018-05-13] MEDS: ONDANSETRON 4 MG INJ IV (02:42)
[2018-05-13] MEDS: morphine 4 MG/ML VIAL IV ×2 (02:43→07:00)
[2018-05-13] MEDS: PANTOPRAZOLE (EC) 40 MG TAB PO ×2 (05:48→17:16)
[2018-05-13] MEDS: LUBIPROSTONE 24 MCG CAP PO (08:19)
[2018-05-13] MEDS: ARIPIPRAZOLE 2 MG TAB PO (08:19)
[2018-05-13] MEDS: DOCUSATE SODIUM 100 MG CAP PO (08:19)
[2018-05-13] MEDS: POLYETHYLENE GLYCOL 17 GM PACKET PO (08:20)
[2018-05-13] MEDS: GABAPENTIN 100 MG CAP PO ×2 (08:20→13:30)
[2018-05-13] MEDS: ERYTHROMYCIN BASE (DR) 250 MG CAP PO (08:20)
[2018-05-13] MEDS: SUCRALFATE 1 GM TAB PO (08:20)
[2018-05-13] MEDS: HYDROCODONE/APAP (7.5/325) TAB PO ×2 (09:41→18:18)
[2018-05-13] MEDS: D5W-0.45 NACL + KCL 20 MEQ 1,000 ML IV (10:30)
[2018-05-13] MEDS: morphine LIQ (10 MG/5 ML) CUP PO (13:56)
== END 2018-05-13 18:55 | disposition home or self-care (01) | DRG 515 ==
LOC: E/R 13:27 → MS1 17:11
PROC: 0SP304Z Removal of Internal Fixation Device from Lumbosacral Joint, Open Approach (ICD-10-PCS; principal; 2018-05-05 13:00)
DX: T84.84XA Pain due to internal orthopedic prosthetic devices, implants and grafts, initial encounter (principal); K22.11 Ulcer of esophagus with bleeding; E46 Unspecified protein-calorie malnutrition; M48.00 Spinal stenosis, site unspecified; E83.39 Other disorders of phosphorus metabolism; K31.84 Gastroparesis; D64.9 Anemia, unspecified; I10 Essential (primary) hypertension; Z86.73 Personal history of transient ischemic attack (TIA), and cerebral infarction without residual deficits; K44.9 Diaphragmatic hernia without obstruction or gangrene; K21.9 Gastro-esophageal reflux disease without esophagitis; D50.9 Iron deficiency anemia, unspecified; G89.4 Chronic pain syndrome; Z68.25 Body mass index [BMI] 25.0-25.9, adult; M54.17 Radiculopathy, lumbosacral region; R20.2 Paresthesia of skin; R26.2 Difficulty in walking, not elsewhere classified; F32.9 Major depressive disorder, single episode, unspecified; G25.0 Essential tremor; R42 Dizziness and giddiness; F43.20 Adjustment disorder, unspecified; R13.10 Dysphagia, unspecified; F45.8 Other somatoform disorders; K22.4 Dyskinesia of esophagus; G47.33 Obstructive sleep apnea (adult) (pediatric); K59.03 Drug induced constipation; T40.2X5A Adverse effect of other opioids, initial encounter
CPT/HCPCS: 36415; 71045; 72114; 72131; 74176; 80048; 80053; 80162; 82306; 82607; 82728; 82746; 82962; 83540; 83735; 83970; 84155; 84165; 84443; 84560; 85025; 85045; 85610; 85651; 86850; 86900; 86901; 88300; 90686; 93005; 97110; 97116; 97161; 97530; 99285-25

== ENCOUNTER 2018-10-11 12:27 | Inpatient (IN) | payer MEDICARE, OTHER ==
[2018-10-11 13:31] LABS: ADD MAN DIFF? NO
[2018-10-11 13:34] LABS: BASOPHILS % 0.2 % (0.0-2.0); HEMATOCRIT 41.1 % (37.0-47.0); HEMOGLOBIN 13.2 g/dl (12.0-16.0); LYMPHOCYTES # 1.2 10^3/ul (0.8-2.9); LYMPHOCYTES % 10.5 % (15.0-51.0); MEAN CORPUSCULAR HGB CONC 32.1 g/dl (32.0-37.0); MEAN CORPUSCULAR VOLUME 90.3 fl (82.0-101.0); MEAN PLATELET VOLUME 10.6 fl (7.4-10.4); MONOCYTE # 0.6 10^3/ul (0.3-0.9); MONOCYTES % 5.6 % (0.0-11.0); NEUTROPHIL # 9.5 10^3/ul (1.6-7.5); NEUTROPHILS % 83.1 % (39.0-77.0); PLATELET COUNT 369 10^3/UL (140-415); RED BLOOD COUNT 4.55 10^6/ul (4.20-5.40); RED CELL DISTRIBUTION WIDTH 14.2 % (11.5-14.5)
[2018-10-11 13:34] LABS: WHITE BLOOD COUNT 11.4 10^3/ul (4.8-10.8)
[2018-10-11 13:58] LABS: ALANINE AMINOTRANSFERASE 18 IU/L (13-69); ALBUMIN 4.4 g/dl (3.3-4.9); ALBUMIN/GLOBULIN RATIO 1.15; ALKALINE PHOSPHATASE 127 IU/L (42-121); ANION GAP 12 (5-13); ASPARTATE AMINO TRANSFERASE 19 IU/L (15-46); BILIRUBIN,INDIRECT 0.7 mg/dl (0-1.1); BILIRUBIN,TOTAL 0.7 mg/dl (0.2-1.3); BLOOD UREA NITROGEN 9 mg/dl (7-20); CALCIUM 8.7 mg/dl (8.4-10.2); CARBON DIOXIDE 22 mmol/L (21-31); CHLORIDE 107 mmol/L (97-110); CREATININE 0.58 mg/dl (0.44-1.00); Estimated GFR > 60 mL/min (>60); GLUCOSE 139 mg/dl (70-220); LIPASE 47 U/L (23-300); POTASSIUM 3.7 mmol/L (3.5-5.1); SODIUM 141 mmol/L (135-144); TOTAL PROTEIN 8.2 g/dl (6.1-8.1)
[2018-10-11] MEDS: SOD CHLORIDE 0.9% 1,000 ML IV ×3 (13:59→18:20)
[2018-10-11] MEDS: HYDROmorphONE 1 MG/ML SYG IV (13:59)
[2018-10-11] MEDS: ONDANSETRON 4 MG INJ IV ×4 (13:59→16:08)
[2018-10-11] MEDS: morphine 4 MG/ML VIAL IV ×2 (14:41→15:44)
[2018-10-11] MEDS ORDERED: ACETAMINOPHEN 325 MG TAB PO (15:00)
[2018-10-11] MEDS ORDERED: ONDANSETRON 4 MG INJ IV (15:00)
[2018-10-11] MEDS: PANTOPRAZOLE IV 80 MG in SOD CHLORIDE 0.9% 100 ML IVPB (16:43)
[2018-10-11] MEDS: morphine 2 MG INJ IV ×2 (18:20→20:15)
[2018-10-11] MEDS: PANTOPRAZOLE IV 80 MG in SOD CHLORIDE 0.9% 100 ML IV (18:20)
[2018-10-11] MEDS: FAMOTIDINE 20 MG INJ IV (20:15)
[2018-10-12] MEDS: morphine 2 MG INJ IV ×6 (00:54→22:04)
[2018-10-12] MEDS: SOD CHLORIDE 0.9% 1,000 ML IV ×4 (02:27→22:10)
[2018-10-12 05:06] LABS: ADD MAN DIFF? NO
[2018-10-12 05:14] LABS: WHITE BLOOD COUNT 6.6 10^3/ul (4.8-10.8)
[2018-10-12 05:14] LABS: BASOPHILS % 0.3 % (0.0-2.0); EOSINOPHILS % 0.5 % (0.0-7.0); HEMATOCRIT 34.5 % (37.0-47.0); LYMPHOCYTES # 2.2 10^3/ul (0.8-2.9); MEAN CORPUSCULAR HEMOGLOBIN 29.3 pg (29.0-33.0); MEAN CORPUSCULAR HGB CONC 31.9 g/dl (32.0-37.0); MEAN PLATELET VOLUME 10.3 fl (7.4-10.4); MONOCYTE # 0.7 10^3/ul (0.3-0.9); MONOCYTES % 11.1 % (0.0-11.0); NEUTROPHIL # 3.6 10^3/ul (1.6-7.5); NEUTROPHILS % 54.8 % (39.0-77.0); PLATELET COUNT 265 10^3/UL (140-415); RED BLOOD COUNT 3.75 10^6/ul (4.20-5.40); RED CELL DISTRIBUTION WIDTH 14.3 % (11.5-14.5)
[2018-10-12 05:53] LABS: ALANINE AMINOTRANSFERASE 18 IU/L (13-69); ALBUMIN 3.7 g/dl (3.3-4.9); ALBUMIN/GLOBULIN RATIO 1.27; ALKALINE PHOSPHATASE 85 IU/L (42-121); ANION GAP 7 (5-13); ASPARTATE AMINO TRANSFERASE 19 IU/L (15-46); BILIRUBIN,INDIRECT 0.6 mg/dl (0-1.1); BILIRUBIN,TOTAL 0.6 mg/dl (0.2-1.3); BLOOD UREA NITROGEN 8 mg/dl (7-20); CALCIUM 7.2 mg/dl (8.4-10.2); CARBON DIOXIDE 22 mmol/L (21-31); CHLORIDE 111 mmol/L (97-110); CREATININE 0.52 mg/dl (0.44-1.00); Estimated GFR > 60 mL/min (>60); GLUCOSE 102 mg/dl (70-220); POTASSIUM 3.5 mmol/L (3.5-5.1); SODIUM 140 mmol/L (135-144); TOTAL PROTEIN 6.6 g/dl (6.1-8.1)
[2018-10-12] MEDS: ENOXAPARIN 30 MG/0.3 ML SYG SC (09:00)
[2018-10-12] MEDS: ONDANSETRON 4 MG TAB PO (09:10)
[2018-10-12] MEDS ORDERED: ONDANSETRON 4 MG INJ IV (11:30)
[2018-10-12] MEDS: ONDANSETRON 4 MG INJ IV ×3 (11:35→22:10)
[2018-10-12] MEDS: PANTOPRAZOLE 40 MG INJ IV (17:22)
[2018-10-12] MEDS ORDERED: IBUPROFEN 400 MG TAB PO (19:00)
[2018-10-12] MEDS: ERYTHROMYCIN BASE (DR) 250 MG CAP PO (22:04)
[2018-10-13] MEDS: morphine 2 MG INJ IV ×6 (01:47→23:35)
[2018-10-13] MEDS: ERYTHROMYCIN BASE (DR) 250 MG CAP PO ×3 (05:39→21:32)
[2018-10-13] MEDS: PANTOPRAZOLE 40 MG INJ IV ×2 (05:39→17:34)
[2018-10-13] MEDS: SOD CHLORIDE 0.9% 1,000 ML IV ×3 (05:46→22:48)
[2018-10-13] MEDS: ACETAMINOPHEN 325 MG TAB PO (08:02)
[2018-10-13] MEDS: ENOXAPARIN 30 MG/0.3 ML SYG SC (08:09)
[2018-10-13] MEDS: ONDANSETRON 4 MG INJ IV ×2 (10:57→18:24)
[2018-10-14] MEDS: ONDANSETRON 4 MG INJ IV ×3 (05:17→16:58)
[2018-10-14] MEDS: morphine 2 MG INJ IV ×5 (05:17→22:04)
[2018-10-14] MEDS: PANTOPRAZOLE 40 MG INJ IV ×2 (05:17→18:11)
[2018-10-14] MEDS: ERYTHROMYCIN BASE (DR) 250 MG CAP PO ×3 (05:17→21:03)
[2018-10-14] MEDS: SOD CHLORIDE 0.9% 1,000 ML IV (06:27)
[2018-10-14] MEDS: ENOXAPARIN 30 MG/0.3 ML SYG SC (08:29)
[2018-10-14] MEDS: IBUPROFEN 400 MG TAB PO (21:03)
[2018-10-15] MEDS: morphine 2 MG INJ IV ×6 (02:07→22:40)
[2018-10-15] MEDS: PANTOPRAZOLE 40 MG INJ IV ×2 (06:08→17:34)
[2018-10-15] MEDS: ERYTHROMYCIN BASE (DR) 250 MG CAP PO ×3 (06:08→21:08)
[2018-10-15] MEDS: IBUPROFEN 400 MG TAB PO ×3 (08:59→21:08)
[2018-10-15] MEDS: ENOXAPARIN 30 MG/0.3 ML SYG SC (09:01)
[2018-10-15] MEDS: NACL 0.9% 3 ML SYG IV (10:21)
[2018-10-15] MEDS: ONDANSETRON 4 MG INJ IV (14:42)
[2018-10-16] MEDS: morphine 2 MG INJ IV ×6 (02:43→23:40)
[2018-10-16 05:32] LABS: ADD MAN DIFF? NO
[2018-10-16 05:33] LABS: BASOPHILS % 0.2 % (0.0-2.0); EOSINOPHILS # 0.1 10^3/ul (0.0-0.5); EOSINOPHILS % 1.4 % (0.0-7.0); HEMATOCRIT 34.1 % (37.0-47.0); HEMOGLOBIN 11.2 g/dl (12.0-16.0); LYMPHOCYTES # 1.6 10^3/ul (0.8-2.9); LYMPHOCYTES % 28.3 % (15.0-51.0); MEAN CORPUSCULAR HEMOGLOBIN 28.6 pg (29.0-33.0); MEAN CORPUSCULAR HGB CONC 32.8 g/dl (32.0-37.0); MEAN CORPUSCULAR VOLUME 87.2 fl (82.0-101.0); MEAN PLATELET VOLUME 10.8 fl (7.4-10.4); MONOCYTE # 0.6 10^3/ul (0.3-0.9); MONOCYTES % 11.3 % (0.0-11.0); NEUTROPHIL # 3.3 10^3/ul (1.6-7.5); NEUTROPHILS % 58.3 % (39.0-77.0); PLATELET COUNT 295 10^3/UL (140-415); RED BLOOD COUNT 3.91 10^6/ul (4.20-5.40); RED CELL DISTRIBUTION WIDTH 14.2 % (11.5-14.5)
[2018-10-16 05:33] LABS: WHITE BLOOD COUNT 5.6 10^3/ul (4.8-10.8)
[2018-10-16] MEDS: PANTOPRAZOLE (EC) 40 MG TAB PO ×2 (05:41→17:39)
[2018-10-16] MEDS: ERYTHROMYCIN BASE (DR) 250 MG CAP PO ×3 (05:41→22:24)
[2018-10-16] MEDS: ONDANSETRON 4 MG INJ IV (05:41)
[2018-10-16] MEDS: IBUPROFEN 400 MG TAB PO ×3 (09:11→21:00)
[2018-10-16] MEDS: ENOXAPARIN 30 MG/0.3 ML SYG SC (09:17)
[2018-10-17] MEDS: PANTOPRAZOLE (EC) 40 MG TAB PO ×2 (05:14→17:57)
[2018-10-17] MEDS: morphine 2 MG INJ IV ×5 (05:14→22:02)
[2018-10-17] MEDS: ERYTHROMYCIN BASE (DR) 250 MG CAP PO ×3 (05:14→22:02)
[2018-10-17] MEDS: ENOXAPARIN 30 MG/0.3 ML SYG SC (08:31)
[2018-10-17] MEDS: IBUPROFEN 400 MG TAB PO ×3 (08:37→20:21)
[2018-10-18] MEDS: morphine 2 MG INJ IV ×6 (02:05→22:02)
[2018-10-18] MEDS: ERYTHROMYCIN BASE (DR) 250 MG CAP PO ×3 (05:53→22:08)
[2018-10-18] MEDS: PANTOPRAZOLE (EC) 40 MG TAB PO ×2 (05:53→18:12)
[2018-10-18 06:28] LABS: ADD MAN DIFF? NO
[2018-10-18 06:34] LABS: WHITE BLOOD COUNT 4.7 10^3/ul (4.8-10.8)
[2018-10-18 06:34] LABS: BASOPHILS % 0.4 % (0.0-2.0); EOSINOPHILS # 0.1 10^3/ul (0.0-0.5); EOSINOPHILS % 1.3 % (0.0-7.0); HEMATOCRIT 32.9 % (37.0-47.0); HEMOGLOBIN 10.5 g/dl (12.0-16.0); LYMPHOCYTES % 42.5 % (15.0-51.0); MEAN CORPUSCULAR HEMOGLOBIN 28.5 pg (29.0-33.0); MEAN CORPUSCULAR HGB CONC 31.9 g/dl (32.0-37.0); MEAN CORPUSCULAR VOLUME 89.4 fl (82.0-101.0); MEAN PLATELET VOLUME 10.9 fl (7.4-10.4); MONOCYTE # 0.5 10^3/ul (0.3-0.9); NEUTROPHIL # 2.1 10^3/ul (1.6-7.5); NEUTROPHILS % 44.6 % (39.0-77.0); PLATELET COUNT 283 10^3/UL (140-415); RED BLOOD COUNT 3.68 10^6/ul (4.20-5.40); RED CELL DISTRIBUTION WIDTH 14.1 % (11.5-14.5)
[2018-10-18 07:23] LABS: CARCINOEMBRYONIC ANTIGEN 2.2 ng/ml (0.0-5.0)
[2018-10-18 07:30] LABS: CANCER ANTIGEN 19-9 < 1.4 U/ml (0.0-37.0)
[2018-10-18 08:14] LABS: IRON 31 ug/dl (35-150)
[2018-10-18 08:17] LABS: RETICULOCYTE COUNT # 0.061 X10^6 (0.020-0.110); RETICULOCYTE COUNT % 1.7 % (0.5-1.5)
[2018-10-18 08:17] LABS: RETICULOCYTE RBC 3.59
[2018-10-18 08:23] LABS: % IRON SATURATION 14 % SAT (22-52); TOTAL IRON BINDING CAPACITY 227 ug/dl (241-421)
[2018-10-18] MEDS: IBUPROFEN 400 MG TAB PO ×4 (08:51→20:47)
[2018-10-18] MEDS: ENOXAPARIN 30 MG/0.3 ML SYG SC (08:54)
[2018-10-18 09:22] LABS: FOLATE 12.6 ng/ml (2.8-20.0)
[2018-10-18] MEDS: BISACODYL 10 MG SUPP PR (13:52)
[2018-10-18 16:34] LABS: OCCULT BLOOD STOOL POSITIVE (NEGATIVE)
[2018-10-18] MEDS: SENNA TAB PO (20:47)
[2018-10-18] MEDS: ONDANSETRON 4 MG INJ IV (22:08)
[2018-10-19] MEDS: morphine 2 MG INJ IV ×6 (02:00→22:54)
[2018-10-19] MEDS: ERYTHROMYCIN BASE (DR) 250 MG CAP PO ×3 (05:57→22:54)
[2018-10-19] MEDS: PANTOPRAZOLE (EC) 40 MG TAB PO ×2 (05:57→17:51)
[2018-10-19] MEDS: SENNA TAB PO ×2 (08:24→20:49)
[2018-10-19] MEDS: IBUPROFEN 400 MG TAB PO ×3 (08:27→20:49)
[2018-10-19 08:36] LABS: ADD MAN DIFF? NO
[2018-10-19 08:46] LABS: WHITE BLOOD COUNT 4.1 10^3/ul (4.8-10.8)
[2018-10-19 08:46] LABS: BASOPHILS % 0.5 % (0.0-2.0); EOSINOPHILS # 0.1 10^3/ul (0.0-0.5); EOSINOPHILS % 1.4 % (0.0-7.0); HEMOGLOBIN 10.3 g/dl (12.0-16.0); LYMPHOCYTES # 1.9 10^3/ul (0.8-2.9); LYMPHOCYTES % 46.9 % (15.0-51.0); MEAN CORPUSCULAR HEMOGLOBIN 28.5 pg (29.0-33.0); MEAN CORPUSCULAR HGB CONC 31.2 g/dl (32.0-37.0); MEAN CORPUSCULAR VOLUME 91.2 fl (82.0-101.0); MEAN PLATELET VOLUME 10.6 fl (7.4-10.4); MONOCYTE # 0.4 10^3/ul (0.3-0.9); MONOCYTES % 10.1 % (0.0-11.0); NEUTROPHIL # 1.7 10^3/ul (1.6-7.5); NEUTROPHILS % 40.9 % (39.0-77.0); PLATELET COUNT 243 10^3/UL (140-415); RED BLOOD COUNT 3.62 10^6/ul (4.20-5.40)
[2018-10-19] MEDS: BISACODYL 10 MG SUPP PR (18:51)
[2018-10-19] MEDS: ONDANSETRON 4 MG INJ IV (22:53)
[2018-10-20] MEDS: morphine 2 MG INJ IV ×5 (04:12→21:01)
[2018-10-20] MEDS: ERYTHROMYCIN BASE (DR) 250 MG CAP PO ×3 (04:28→21:01)
[2018-10-20] MEDS: PANTOPRAZOLE (EC) 40 MG TAB PO ×2 (04:28→18:13)
[2018-10-20 05:36] LABS: ADD MAN DIFF? NO
[2018-10-20 05:41] LABS: BASOPHILS % 0.2 % (0.0-2.0); EOSINOPHILS # 0.1 10^3/ul (0.0-0.5); EOSINOPHILS % 1.7 % (0.0-7.0); HEMATOCRIT 32.6 % (37.0-47.0); HEMOGLOBIN 10.6 g/dl (12.0-16.0); LYMPHOCYTES # 2.2 10^3/ul (0.8-2.9); LYMPHOCYTES % 40.2 % (15.0-51.0); MEAN CORPUSCULAR HGB CONC 32.5 g/dl (32.0-37.0); MEAN CORPUSCULAR VOLUME 89.1 fl (82.0-101.0); MEAN PLATELET VOLUME 10.7 fl (7.4-10.4); MONOCYTE # 0.4 10^3/ul (0.3-0.9); MONOCYTES % 7.3 % (0.0-11.0); NEUTROPHIL # 2.7 10^3/ul (1.6-7.5); NEUTROPHILS % 50.2 % (39.0-77.0); PLATELET COUNT 262 10^3/UL (140-415); RED BLOOD COUNT 3.66 10^6/ul (4.20-5.40); RED CELL DISTRIBUTION WIDTH 13.8 % (11.5-14.5)
[2018-10-20 05:41] LABS: WHITE BLOOD COUNT 5.4 10^3/ul (4.8-10.8)
[2018-10-20 05:57] LABS: INR 0.93; PROTIME 12.6 Sec (11.9-14.9)
[2018-10-20 05:58] LABS: PARTIAL THROMBOPLASTIN TIME 30.3 Sec (23.0-35.0)
[2018-10-20 06:05] LABS: ALANINE AMINOTRANSFERASE 25 IU/L (13-69); ALBUMIN 3.2 g/dl (3.3-4.9); ALKALINE PHOSPHATASE 67 IU/L (42-121); ANION GAP 4 (5-13); ASPARTATE AMINO TRANSFERASE 20 IU/L (15-46); BILIRUBIN,INDIRECT 0.3 mg/dl (0-1.1); BILIRUBIN,TOTAL 0.3 mg/dl (0.2-1.3); BLOOD UREA NITROGEN 13 mg/dl (7-20); CALCIUM 8.7 mg/dl (8.4-10.2); CARBON DIOXIDE 29 mmol/L (21-31); CHLORIDE 106 mmol/L (97-110); CREATININE 0.53 mg/dl (0.44-1.00); Estimated GFR > 60 mL/min (>60); GLUCOSE 98 mg/dl (70-220); POTASSIUM 3.4 mmol/L (3.5-5.1); SODIUM 139 mmol/L (135-144); TOTAL PROTEIN 6.1 g/dl (6.1-8.1)
[2018-10-20] MEDS: IBUPROFEN 400 MG TAB PO ×3 (09:00→20:58)
[2018-10-20] MEDS ORDERED: ENOXAPARIN 30 MG/0.3 ML SYG SC (09:00)
[2018-10-20] MEDS: SENNA TAB PO ×2 (09:00→21:00)
[2018-10-20] MEDS: ONDANSETRON 4 MG INJ IV ×2 (10:34→16:21)
[2018-10-20] MEDS: LIDOCAINE 2% (SDV) 5 ML INJ (11:54)
[2018-10-20] MEDS: PROPOFOL 40 ML (11:54)
[2018-10-20] MEDS ORDERED: FENTAnyl 50 MCG/ML VIAL IV (14:00)
[2018-10-20] MEDS: METOCLOPRAMIDE 10 MG INJ IV (18:13)
[2018-10-21] MEDS: METOCLOPRAMIDE 10 MG INJ IV ×3 (00:18→13:13)
[2018-10-21 05:31] LABS: ADD MAN DIFF? NO
[2018-10-21 05:42] LABS: WHITE BLOOD COUNT 5.2 10^3/ul (4.8-10.8)
[2018-10-21 05:42] LABS: BASOPHILS % 0.2 % (0.0-2.0); EOSINOPHILS # 0.1 10^3/ul (0.0-0.5); EOSINOPHILS % 1.5 % (0.0-7.0); HEMATOCRIT 34.9 % (37.0-47.0); HEMOGLOBIN 11.1 g/dl (12.0-16.0); LYMPHOCYTES # 1.9 10^3/ul (0.8-2.9); LYMPHOCYTES % 36.3 % (15.0-51.0); MEAN CORPUSCULAR HEMOGLOBIN 28.6 pg (29.0-33.0); MEAN CORPUSCULAR HGB CONC 31.8 g/dl (32.0-37.0); MEAN CORPUSCULAR VOLUME 89.9 fl (82.0-101.0); MEAN PLATELET VOLUME 11.1 fl (7.4-10.4); MONOCYTE # 0.6 10^3/ul (0.3-0.9); MONOCYTES % 10.6 % (0.0-11.0); NEUTROPHIL # 2.7 10^3/ul (1.6-7.5); PLATELET COUNT 291 10^3/UL (140-415); RED BLOOD COUNT 3.88 10^6/ul (4.20-5.40); RED CELL DISTRIBUTION WIDTH 13.9 % (11.5-14.5)
[2018-10-21] MEDS: morphine 2 MG INJ IV ×3 (05:58→14:39)
[2018-10-21] MEDS: PANTOPRAZOLE (EC) 40 MG TAB PO (06:02)
[2018-10-21] MEDS: ERYTHROMYCIN BASE (DR) 250 MG CAP PO ×2 (06:02→14:39)
[2018-10-21 06:07] LABS: ANION GAP 5 (5-13); BLOOD UREA NITROGEN 9 mg/dl (7-20); CALCIUM 8.7 mg/dl (8.4-10.2); CARBON DIOXIDE 27 mmol/L (21-31); CHLORIDE 107 mmol/L (97-110); Estimated GFR > 60 mL/min (>60); GLUCOSE 98 mg/dl (70-220); POTASSIUM 3.5 mmol/L (3.5-5.1); SODIUM 139 mmol/L (135-144)
[2018-10-21] MEDS: SENNA TAB PO ×2 (09:00→09:08)
[2018-10-21] MEDS: IBUPROFEN 400 MG TAB PO ×3 (09:00→13:14)
== END 2018-10-21 17:30 | disposition home or self-care (01) | DRG 394 ==
LOC: 2NE 10-12 18:35 → E/R 12:27 → 2NE 14:56
PROC: 0DB68ZX Excision of Stomach, Via Natural or Artificial Opening Endoscopic, Diagnostic (ICD-10-PCS; principal; 2018-10-20 11:25)
DX: K65.4 Sclerosing mesenteritis (principal); K22.10 Ulcer of esophagus without bleeding; K21.0 Gastro-esophageal reflux disease with esophagitis; K44.9 Diaphragmatic hernia without obstruction or gangrene; D64.9 Anemia, unspecified; K29.00 Acute gastritis without bleeding; K31.84 Gastroparesis; Z98.890 Other specified postprocedural states
CPT/HCPCS: 36415; 74176; 80048; 80053; 82270; 82378; 82607; 82728; 82746; 83036; 83540; 83690; 85025; 85045; 85610; 85730; 86301; 88305; 88312; 96374; 96375; 96376; 99285-25